=== PATIENT | female | born 1935 | race Caucasian/White ===

== ENCOUNTER 2022-08-21 22:12 | Inpatient (IN) | payer MEDICARE, MEDICAID, SELFPAY ==
[2022-08-21 22:12] VITALS: BP 207/134; PULSE 106; RESP 18; TEMP 36.8; O2SAT 98; BMI 33.5
--- NOTE | 2022-08-21 22:12 | CT_ITS ---
PROCEDURE INFORMATION: Exam: CT Lumbar Spine Without Contrast Exam date and time: 08/21/2022 11:37 PM Age: 87 years old Clinical indication: Low back pain; Additional info: Abd and back pain TECHNIQUE: Imaging protocol: Computed tomography of the lumbar spine without contrast. Radiation optimization: All CT scans at this facility use at least one of these dose optimization techniques: automated exposure control; mA and/or kV adjustment per patient size (includes targeted exams where dose is matched to clinical indication); or iterative reconstruction. REPORTING DATA: Count of CT and Cardiac NM exams in prior 12 months: This patient has received 0 known CTs and 0 known cardiac nuclear medicine studies in the 12 months prior to the current study. COMPARISON: [facility] CT abdomen pelvis wo con 05/20/2018 6:40 AM FINDINGS: Bones/joints: Osteopenia. Visualized vertebral body heights are preserved. Soft tissues: Please refer to separate CT abdomen pelvis report for additional findings. IMPRESSION: 1. Visualized vertebral body heights are preserved. If symptoms persist consider further evaluation with MR if no contraindications. 2. Please refer to separate CT abdomen pelvis report for additional findings.
--- NOTE | 2022-08-21 22:12 | CT_ITS ---
PROCEDURE INFORMATION: Exam: CT Abdomen And Pelvis With Contrast Exam date and time: 08/21/2022 11:40 PM Age: 87 years old Clinical indication: Abdominal pain; Additional info: Abd TECHNIQUE: Imaging protocol: Computed tomography of the abdomen and pelvis with contrast. Radiation optimization: All CT scans at this facility use at least one of these dose optimization techniques: automated exposure control; mA and/or kV adjustment per patient size (includes targeted exams where dose is matched to clinical indication); or iterative reconstruction. Contrast material: ISOVUE; Contrast volume: 75 ml; Contrast route: IV; REPORTING DATA: Count of CT and Cardiac NM exams in prior 12 months: This patient has received 0 known CTs and 0 known cardiac nuclear medicine studies in the 12 months prior to the current study. COMPARISON: [facility] CT abdomen pelvis wo con 05/20/2018 6:40 AM FINDINGS: Lungs: Consolidative opacity in the right lower lobe suspicious for pneumonia. Pleural spaces: Incompletely visualize relatively small right pneumothorax. Diaphragm: Elevation the right hemidiaphragm. Liver: No suspicious mass. Gallbladder and bile ducts: Mild intrahepatic biliary duct prominence. Pancreas: 2.2 cm low-attenuation lesion in the distal pancreas, indeterminate. Spleen: Unremarkable. Adrenal glands: Bilateral adrenal thickening. Kidneys and ureters: Bilateral extrarenal pelvis. Several renal cysts and too small to characterize renal hypodensities. Stomach and bowel: Large amount of stool in the colon. The rectum is markedly distended with stool. Rectal thickening with perirectal inflammatory changes. Findings suspicious for stercoral colitis. Appendix: No evidence of appendicitis. Intraperitoneal space: No free air. No ascites. Postsurgical changes in the upper abdomen. Vasculature: Extensive atherosclerotic calcifications in the aorta and its branches. 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 Lymph nodes: No enlarged lymph nodes. Urinary bladder: Unremarkable as visualized. Reproductive: The uterus is not seen. Bones/joints: Osteopenia. Soft tissues: No suspicious mass. Other findings: Limitation due to motion artifact. IMPRESSION: 1. Incompletely visualize relatively small right pneumothorax. 2. The rectum is markedly distended with stool. Rectal thickening with perirectal inflammatory changes. Findings suspicious for stercoral colitis. 3. Consolidative opacity in the right lower lobe suspicious for pneumonia. Recommend imaging follow-up until complete resolution. 4. 2.2 cm low-attenuation lesion in the distal pancreas, indeterminate. Correlate with MRI if no contraindications. COMMENTS: Consistent with the [employer]'s Incidental Findings Committee white paper (J Am Lucas Radiol 2018): Any incidental renal lesion less than 1 cm or classified as too small to characterize, or any incidental cystic renal lesion characterized as simple-appearing, is likely benign. No follow-up imaging is recommended for these lesions per consensus recommendations based on imaging criteria.
[2022-08-21 22:20] VITALS: BP 203/106; PULSE 102; O2SAT 94
[2022-08-21 22:28] VITALS: BP 189/96; PULSE 99; O2SAT 93
[2022-08-21 22:30] VITALS: BP 191/91; PULSE 95; O2SAT 94
[2022-08-21 23:00] VITALS: BP 180/100; PULSE 114; O2SAT 95
[2022-08-21 23:15] LABS: Basophils % 0.1 % (0.1-2.0); Eosinophils # 0.1 K/mm3 (0.0-0.4); Eosinophils % 0.6 % (0.1-12.0); Hematocrit 40.2 % (37.0-47.0); Lymphocytes # 1.2 K/mm3 (0.7-4.5); Lymphocytes % 7.3 % (10-50); Mean Corpuscular HGB Conc 32.5 g/dL (31.8-35.4); Mean Corpuscular Hemoglobin 29.3 pg (27.0-31.2); Mean Corpuscular Volume 90.2 fl (81-99); Mean Platelet Volume 7.5 fl (7.4-10.4); Monocytes % 6.1 % (1.7-9.3); Neutrophils # 13.6 K/mm3 (1.8-7.8); Neutrophils % 85.9 % (37.0-80.0); Platelet Count 458 K/mm3 (142-424); Red Blood Count 4.46 M/mm3 (4.20-5.40); Red Cell Distribution Width 15.8 % (11.5-17.5); White Blood Count 15.8 K/mm3 (4.8-10.8)
[2022-08-21 23:20] LABS: Chloride 89 mmol/L (98-107); Potassium 4.2 mmoL/L (3.5-5.1); Sodium 129 mmol/L (136-145)
[2022-08-21 23:22] LABS: Blood Urea Nitrogen 16 mg/dl (7-17); Creatinine Clearance Estimated 60 mL/min (50-200); Estimated Glomerular Filt Rate 68 ml/min (>60); GFR (African American) 82 ML/MIN (>60)
[2022-08-21 23:23] LABS: Alanine Aminotransferase 15 U/L (12-78); Albumin Level 3.7 g/dl (3.5-5.0); Alkaline Phosphatase 106 U/L (38-126); Anion Gap 18.2 mEq/L (5-15); Aspartate Amino Transferase 27 U/L (14-36); Bilirubin,Total 0.7 mg/dl (0.2-1.3); Calcium 9.3 mg/dl (8.4-10.2); Carbon Dioxide 26 mmol/L (22.0-30.0); Globulin 3.8 g/dL (1.3-3.2); Glucose 145 mg/dl (74-100); Lipase 42 U/L (23-300); Total Protein,Serum 7.5 g/dl (6.3-8.2)
[2022-08-21 23:27] LABS: MANUAL DIFFERENTIAL MANUAL DIFFERENTIAL (MANUAL DIFF)
[2022-08-21 23:30] VITALS: BP 183/100; PULSE 112; O2SAT 95
[2022-08-22] VITALS (12 sets, daily range): BP systolic 110–214; BP diastolic 48–124; PULSE 68–100; RESP 18–20; TEMP 36.4–37.3; O2SAT 92–99; BMI 21.0
[2022-08-22 00:06] LABS: Lymphocytes % 12 % (10-50); Monocytes % 3 % (2-9); Neutrophils % 85 % (42-76); Platelet Estimate Slight Increase; RBC Morphology Normal; Total Cells Counted 100
--- NOTE | 2022-08-22 00:55 | XR_ITS ---
PROCEDURE INFORMATION: Exam: XR Chest Exam date and time: 08/22/2022 1:17 AM Age: 87 years old Clinical indication: Shortness of breath; Additional info: SOA TECHNIQUE: Imaging protocol: Radiologic exam of the chest. Views: 1 view. COMPARISON: CT ABDOMEN PELVIS W CON 08/21/2022 11:40 PM FINDINGS: Lungs: Right basilar opacity may represent pneumonia in appropriate clinical setting. Pleural spaces: Tiny known left pneumothorax. Heart/Mediastinum: Unremarkable cardiomediastinal silhouette. Several calcified intrathoracic lymph nodes. Diaphragm: Elevation the right hemidiaphragm. Bones/joints: No acute osseous findings. IMPRESSION: 1. Tiny known left pneumothorax. 2. Right basilar opacity may represent pneumonia in appropriate clinical setting. Recommend imaging follow-up until complete resolution.
[2022-08-22 01:11] LABS: Coronavirus 19, PCR Not Detected (NotDetected); Influenza A, PCR Not Detected (NotDetected); Influenza B, PCR Not Detected (NotDetected)
--- NOTE | 2022-08-22 01:43 | EXP.HP ---
History of Present Illness *Admission Date: 08/22/22 *Reason for visit:: Abdominal pain *History of present illness: Ms. Albarado is an 87 year old female, resident at a long term, who presented to the ER with lower abdominal pain and back pain. Work-up in the ER, CBC and chemistry panel were unremarkable, except for mild leukocytosis. CT abdomen and pelvis demonstrated severe constipation, rectal thickening with perirectal inflammatory changes, suspicious for stercoral colitis. Also documented incidental finding of RLL pneumonia and questionable left apical pneumothorax. Enema was ordered in the ER. Patient was also started on Vancomycin and Zosyn IV. Discussion with Dr. Ball, agree patient needs to be admitted for management of severe constipation. [facility] Disclaimer: The information contained in this section may have been updated after the patient was seen, as this information can be updated by other users. Medical History Allergic rhinitis Alzheimer disease Anxiety Arthralgia of bilateral temporomandibular joint Chronic pain COVID-19 Delusional disorder Dementia Edema GERD (gastroesophageal reflux disease) Hypertension Insomnia Major depressive disorder Malaise Opioid dependence Protein calorie malnutrition Rectal prolapse Urinary tract infection Surgical History No significant past surgical history Family History Other No significant family history Social History Smoking Status: Never smoker alcohol intake: never current occupational status: retired Travel in the last 8 weeks: None Review of Systems Review of Systems Review of systems:: pertinent systems reviewed and negative unless documented below *Gastrointestinal Gastrointestinal: Reports abdominal pain (lower abdominal pain. ) Comments: Per long term, patient had 3 diarrhea stools yesterday. *Genitourinary Genitourinary: Reports pelvic pain *Musculoskeletal Musculoskeletal: Reports back pain (low) *Neurologic Comments: Hx dementia Meds Home Medications and Allergies Home Medications Medication Instructions Recorded Confirmed Type furosemide 20 mg tablet 20 mg PO DAILY Fluid 08/22/22 08/22/22 History hydrocodone 5 mg-acetaminophen 325 1 tab PO QID Pain 08/22/22 08/22/22 History mg tablet ibuprofen 400 mg tablet (IBU) 400 mg PO Q6HP PRN 08/22/22 08/22/22 History PAIN/INFLAMMATION loratadine 10 mg tablet 10 mg PO DAILY Allergy symptoms 08/22/22 08/22/22 History mirtazapine 45 mg tablet 45 mg PO HS SLEEP/MOOD 08/22/22 08/22/22 History ondansetron HCl 4 mg tablet 4 mg PO Q6HP PRN NAUSEA/VOMITING 08/22/22 08/22/22 History quetiapine 100 mg tablet 100 mg PO TID MOOD 08/22/22 08/22/22 History sennosides 8.6 mg tablet (senna) 8.6 mg PO DAILY constipation 08/22/22 08/22/22 History New Prescriptions to Start Prescriptions: Allergies Allergy/AdvReac Type Severity Reaction Status Date / Time amoxicillin [From Augmentin] Allergy Verified 05/20/18 05:59 clavulanic acid Allergy Verified 05/20/18 05:59 [From Augmentin] Exam Data for Last 24 hours Vital signs and Labs for Last 24 Hours: Temp Pulse Resp BP Pulse Ox 98.2 F 95 H 20 214/124 H 93 L 08/21/22 22:12 08/22/22 01:00 08/22/22 00:02 08/22/22 01:00 08/22/22 01:00 Laboratory Results - last 24 hr 08/21/22 23:07: WBC 15.8 H, RBC 4.46, Hgb 13.0, Hct 40.2, MCV 90.2, MCH 29.3, MCHC 32.5, RDW 15.8, Plt Count 458 H, MPV 7.5, Neut % (Auto) 85.9 H, Lymph % (Auto) 7.3 L, [place] % (Auto) 6.1, Eos % (Auto) 0.6, Baso % (Auto) 0.1, Neut # (Auto) 13.6 H, Lymph # (Auto) 1.2, [place] # (Auto) 1.0, Eos # (Auto) 0.1, Baso # (Auto) 0.0, Total Counted 100, Neutrophils % (Manual) 85 H, Lymphocytes % (Manual) 12, Monocytes % (Manual) 3, Platelet Estimate
[2022-08-22 01:45] LABS: Lactic Acid 0.9 mmol/L (0.7-2.1)
--- NOTE | 2022-08-22 01:57 | HMH.EDGENADL ---
Discharge Plan Disposition Patient Disposition: Admitted As Inpatient Clinical Impressions Clinical Impression: Stercoral colitis, Pneumonia involving right lung Discharge ED Provider: Mao Ball Adult HPI General Chief complaint: PAIN Stated complaint: back pain Time Seen by Provider: 08/21/22 22:12 Mode of Arrival: EMS Source of Information: EMS Limitations: No Limitations Description of Symptoms (Recalled from ER Triage Doc. by RN): EMS states that pt has lower back pain that radiates down into her left leg. History of Present Illness HPI narrative: 76-year-old lady with a past medical history of anemia, renal insufficiency, urinary tract infection who presents to the emergency department with a chief complaint of lower abdominal and back pain. Patient unable to give further history than this due to baseline dementia. care home states she had 3 diarrhea bowel movements today. Related Data Previous Rx's Medication Instructions Recorded hydrocortisone 2.5 % topical cream 30 gm TP TID ##1 05/20/18 with perineal applicator levofloxacin 500 mg tablet 500 mg PO DAILY #7 tabs 05/20/18 Allergies Allergy/AdvReac Type Severity Reaction Status Date / Time amoxicillin [From Augmentin] Allergy Verified 05/20/18 05:59 clavulanic acid Allergy Verified 05/20/18 05:59 [From Augmentin] [facility] Disclaimer: The information contained in this section may have been updated after the patient was seen, as this information can be updated by other users. Social History Smoking Status: Never smoker alcohol intake: never current occupational status: retired Travel in the last 8 weeks: None ROS Obtained: Yes unobtainable due to mental condition Physical Exam General General appearance: alert Head Head exam: atraumatic ENT ENT exam: Present normal exam Neck Neck exam: Present normal inspection Chest Chest inspection: Present normal inspection Respiratory Respiratory exam: Present normal lung sounds bilaterally Cardiovascular Cardiovascular exam: Present regular rate Abdominal Exam Abdominal exam: Present distention and other (Abdomen is distended but no notable tenderness.) Extremities Exam Extremities exam: Present normal inspection Back Exam Back exam: Present normal inspection Neurological Exam Neurological exam: Present alert Medical Decision Making Eric Inquiry Pt receiving controlled substance: No Vital Signs: 08/21/22 22:12 08/21/22 22:20 08/21/22 22:28 Temperature 98.2 F Temperature Source Oral Pulse Rate 102 H 99 H Pulse Rate [Apical] 106 H Respiratory Rate 18 Blood Pressure 203/106 H 189/96 H Blood Pressure [Right Arm] 207/134 H Blood Pressure Mean Blood Pressure Mean [Right Arm] 158 Blood Pressure Source [Right Arm] Automatic Cuff Blood Pressure Position [Right Arm] Sitting 02 Sat by Pulse Oximetry 98 94 L 93 L Oxygen Delivery Method Room Air Room Air Room Air 08/21/22 22:30 08/21/22 23:00 08/21/22 23:30 Temperature Temperature Source Pulse Rate 95 H 114 H 112 H Pulse Rate [Apical] Respiratory Rate Blood Pressure 191/91 H 180/100 H 183/100 H Blood Pressure [Right Arm] Blood Pressure Mean Blood Pressure Mean [Right Arm] Blood Pressure Source [Right Arm] Blood Pressure Position [Right Arm] 02 Sat by Pulse Oximetry 94 L 95 95 Oxygen Delivery Method Room Air Room Air Room Air 08/22/22 00:02 08/22/22 00:31 08/22/22 01:00 Temperature Temperature Source Pulse Rate 94 H 100 H 95 H Pulse Rate [Apical] Respiratory Rate 20 Blood Pressure 145/123 H 176/105 H 214/124 H Blood Pressure [Right Arm] Blood Pressure Mean 129 Blood Pressure Mean [Right Arm] Blood Pressure Source [Right Arm] Blood Pressure Position [Right Arm] 02 Sat by Pulse Oximetry 94 L 92 L 93 L Oxygen Delivery Method Room Air Room Air Lab Data Lab Results 08/21/22 23:07: WBC 15.8 H, RBC 4.46, Hgb
--- NOTE | 2022-08-22 02:27 | PC.NURSE ---
Patient given a soap suds enema. Stool ball was at the base of the rectum and thus the enema did not infuse into the patients bowels. MD notified.
--- NOTE | 2022-08-22 02:35 | PC.NURSE ---
Pt. arrived to floor at this time.
--- NOTE | 2022-08-22 03:06 | PC.NURSE ---
rECEIVED PHONE REPORT FROM ANANT LEONARD RN/ED NURSE AT 0200. 87 YO FEMALE FROM [facility] HOME BEING ADMITTED FOR COLITIS/CONSTIPATION/ PNEUMONIA. PATIENT ARRIVED TO THE MED SURG FLOOR AT 0230 VIA STRETCHER AND ADMITTED TO ROOM 200. ORIENTED TO ROOM AND CALL WARD. PATIENT VERBALIZES UNSERSTANDING.
--- NOTE | 2022-08-22 03:20 | PC.NURSE ---
[facility] Attempted to call [facility] to get telephone consent for DNR in hospital, but no answer during call. Voicemail was left for son to call 2nd floor back.
--- NOTE | 2022-08-22 06:01 | PC.NURSE ---
PATIENT'S BP HAS BEEN ELEVATED IN THE ED AND ON MED SURG. RECEIVED ZOFRAN 4 MG IV FOR NAUSEA AND DRY HEAVES. RECEIVED METOPROLOL 5 MG IVP FOR BP 189/102. AT 0400 BP DOWN TO 148/80. RECEIVED ENEMA IN THE ED. STILL NO RESULTS FROM THE ENEMA.
[2022-08-22 07:59] LABS: Basophils % 0.1 % (0.1-2.0); Eosinophils # 0.1 K/mm3 (0.0-0.4); Eosinophils % 0.6 % (0.1-12.0); Hematocrit 37.4 % (37.0-47.0); Lymphocytes # 1.3 K/mm3 (0.7-4.5); Lymphocytes % 7.5 % (10-50); Mean Corpuscular Hemoglobin 29.5 pg (27.0-31.2); Mean Platelet Volume 7.9 fl (7.4-10.4); Monocytes # 1.6 K/mm3 (0.1-1.0); Monocytes % 8.8 % (1.7-9.3); Neutrophils # 14.8 K/mm3 (1.8-7.8); Neutrophils % 82.9 % (37.0-80.0); Platelet Count 429 K/mm3 (142-424); Red Blood Count 4.07 M/mm3 (4.20-5.40); Red Cell Distribution Width 15.7 % (11.5-17.5); White Blood Count 17.9 K/mm3 (4.8-10.8)
[2022-08-22 08:10] LABS: Alanine Aminotransferase 15 U/L (12-78); Albumin Level 3.2 g/dl (3.5-5.0); Albumin/Globulin Ratio 0.9 (1.1-1.8); Alkaline Phosphatase 92 U/L (38-126); Aspartate Amino Transferase 26 U/L (14-36); Bilirubin,Total 0.8 mg/dl (0.2-1.3); Blood Urea Nitrogen 14 mg/dl (7-17); Calcium 8.9 mg/dl (8.4-10.2); Carbon Dioxide 25 mmol/L (22.0-30.0); Chloride 96 mmol/L (98-107); Creatinine Clearance Estimated 38 mL/min (50-200); Estimated Glomerular Filt Rate 68 ml/min (>60); GFR (African American) 82 ML/MIN (>60); Globulin 3.5 g/dL (1.3-3.2); Glucose 103 mg/dl (74-100); Magnesium 1.8 mg/dl (1.6-2.3); Phosphorous 3.6 mg/dl (2.5-4.5); Sodium 132 mmol/L (136-145); Total Protein,Serum 6.7 g/dl (6.3-8.2)
--- NOTE | 2022-08-22 08:31 | EXP.PHA.CONS ---
Pharmacy Consult Date: 08/22/22 Time: 08:31 Referring provider: DR. JESSICA Reason for Consult:: VANCOMYCIN DOSING Allergies Allergy/AdvReac Type Severity Reaction Status Date / Time amoxicillin [From Augmentin] Allergy Verified 05/20/18 05:59 clavulanic acid Allergy Verified 05/20/18 05:59 [From Augmentin] Home Medications Medication Instructions Recorded Confirmed Type furosemide 20 mg tablet 20 mg PO DAILY Fluid 08/22/22 08/22/22 History hydrocodone 5 mg-acetaminophen 325 1 tab PO QID Pain 08/22/22 08/22/22 History mg tablet ibuprofen 400 mg tablet (IBU) 400 mg PO Q6H Fever 08/22/22 08/22/22 History loratadine 10 mg tablet 10 mg PO DAILY Allergy symptoms 08/22/22 08/22/22 History mirtazapine 45 mg tablet 45 mg PO HS mood 08/22/22 08/22/22 History ondansetron HCl 4 mg tablet 4 mg PO Q6H Nausea & vomiting 08/22/22 08/22/22 History quetiapine 100 mg tablet 100 mg PO TID mood 08/22/22 08/22/22 History sennosides 8.6 mg tablet (senna) 8.6 mg PO DAILY constipation 08/22/22 08/22/22 History New Prescriptions to Start Prescriptions: Height: 1.68 m Weight: 59.421 kg Laboratory Results:: Laboratory Results - last 24 hr 08/21/22 23:07: WBC 15.8 H, RBC 4.46, Hgb 13.0, Hct 40.2, MCV 90.2, MCH 29.3, MCHC 32.5, RDW 15.8, Plt Count 458 H, MPV 7.5, Neut % (Auto) 85.9 H, Lymph % (Auto) 7.3 L, [place] % (Auto) 6.1, Eos % (Auto) 0.6, Baso % (Auto) 0.1, Neut # (Auto) 13.6 H, Lymph # (Auto) 1.2, [place] # (Auto) 1.0, Eos # (Auto) 0.1, Baso # (Auto) 0.0, Total Counted 100, Neutrophils % (Manual) 85 H, Lymphocytes % (Manual) 12, Monocytes % (Manual) 3, Platelet Estimate Slight increase, RBC Morphology Normal 08/21/22 23:07: Sodium 129 L, Potassium 4.2, Chloride 89 L, Carbon Dioxide 26, Anion Gap 18.2 H, BUN 16, Creatinine 0.80, Estimated Creat Clear 60, Estimated GFR 68, Est GFR ( Amer) 82, Glucose 145 H, Calcium 9.3, Total Bilirubin 0.7, AST 27, ALT 15, Alkaline Phosphatase 106, Total Protein 7.5, Albumin 3.7, Globulin 3.8 H, Albumin/Globulin Ratio 1.0 L, Lipase 42 08/22/22 01:06: SARS-CoV-2 (PCR) Not detected, Influenza A Untype (PCR) Not detected, Influenza Type B (PCR) Not detected 08/22/22 01:31: Lactate 0.9 08/22/22 06:23: WBC 17.9 H, RBC 4.07 L, Hgb 12.0 L, Hct 37.4, MCV 92.0, MCH 29.5, MCHC 32.0, RDW 15.7, Plt Count 429 H, MPV 7.9, Neut % (Auto) 82.9 H, Lymph % (Auto) 7.5 L, [place] % (Auto) 8.8, Eos % (Auto) 0.6, Baso % (Auto) 0.1, Neut # (Auto) 14.8 H, Lymph # (Auto) 1.3, [place] # (Auto) 1.6 H, Eos # (Auto) 0.1, Baso # (Auto) 0.0 08/22/22 06:23: Sodium 132 L, Potassium 4.0, Chloride 96 L, Carbon Dioxide 25, Anion Gap 15.0, BUN 14, Creatinine 0.80, Estimated Creat Clear 38, Estimated GFR 68, Est GFR ( Amer) 82, Glucose 103 H D, Calcium 8.9, Phosphorus 3.6, Magnesium 1.8, Total Bilirubin 0.8, AST 26, ALT 15, Alkaline Phosphatase 92, Total Protein 6.7, Albumin 3.2 L D, Globulin 3.5 H, Albumin/Globulin Ratio 0.9 L Medical History: Medical History (Updated 08/22/22 @ 03:42 by Lauren Nichols APRN) Allergic rhinitis Alzheimer disease Anxiety Arthralgia of bilateral temporomandibular joint Chronic pain COVID-19 Delusional disorder Dementia Edema GERD (gastroesophageal reflux disease) Hypertension Insomnia Major depressive disorder Malaise Opioid dependence Protein calorie malnutrition Rectal prolapse Urinary tract infection Assessment and Plan Assessment and plan all Dx Assessment and Plan for all problems:: Pharmacokinetic dosing service Objective: Patient: Floor: Age: 87 yo Serum creatinine: 1 mg/dL Height: 66.1 Inches Weight (kg): 59.4 Assessment: IBW (kg): 59.53 Dosing wt(kg): 59.4 Estimated Creatinine clearance (ml/min): 37.9 CRCL method: Cockcroft and Gault using ibw(default). Drug selected: Vancomycin Loading dose (mg): 0 Vd (liters): 47.5 (factor used: 0.8 L/kg) Colin (hr-1): 0.036 Half life (hrs): 19.25 R
[2022-08-22 09:26] LABS: Microscopic, Urine URINE MICROSCOPIC (MICROSCOPIC)
[2022-08-22 09:35] LABS: Appearance,Urine SL CLOUDY (Clear); Bilirubin,Urine Negative (Negative); Blood, Urine 3+ (Negative); Color,Urine YELLOW (Yellow); Glucose,Urine (UA) Negative (Negative); Ketones,Urine Negative (Negative); Leukocyte Esterase,Urine 1+ (Negative); Nitrate,Urine POSITIVE (Negative); Protein,Urine Negative (Negative); Urobilinogen,Urine 0.2 EU/dl (0.2)
[2022-08-22 09:46] LABS: Bacteria,Urine 3+ /lpf; RBC,Urine 20-50 #/hpf (0-3); Squamous Epithelial Cell,Urine Occasional #/hpf (0-5)
--- NOTE | 2022-08-22 18:14 | PC.NURSE ---
PT HAS SLEPT FOR MOST OF SHIFT. SHE IS ABLE TO MAKE NEEDS KNOWN TO STAFF AND APPROPRIATELY ANSWERS QUESTIONS AND FOLLOW COMMANDS. SHE DID GET UP TO BEDSIDE COMMODE FOLLOWING WITH ASSISTANCE X2 AND WAS COMPLETELY DEPENDENT WITH AMBULATION. SHE HAS NOT HAD A BM THIS SHIFT ASIDE FROM MANUAL REMOVAL OF IMPACTED FECES THIS MORNING BY MD AT THE BEDSIDE. SHE DID RECEIVE ONE MINERAL OIL ENEMA BUT NO BM THUS FAR.
[2022-08-23] VITALS: BP 124/54; PULSE 79; RESP 18; TEMP 36.7; O2SAT 92
--- NOTE | 2022-08-23 03:06 | PC.NURSE ---
Pt. is aox 3, 20g R ac with LR @ 50 ml/hr, turn q 2 hour, scuds on, bed alarm on, no changes over night.
[2022-08-23 04:00] VITALS: BP 133/61; PULSE 76; RESP 18; TEMP 36.8; O2SAT 94; BMI 21.2
--- NOTE | 2022-08-23 06:16 | PC.NURSE ---
pt. 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
--- NOTE | 2022-08-23 07:38 | SW/DCPLANNER ---
This patient currently resides at [facility] level of care. Updated patient information has been faxed to Rayne thornton/ [facility]. I will continue to update until patient is medically stable for discharge. Discharge date is unknown at this time.
--- NOTE | 2022-08-23 07:43 | EXP.ACUTE.PN ---
Subjective *Date: 08/23/22 *Time: 12:53 Interval history: Pleasant. Oriented to self. States she hurts but cannot focalize it. Vitals normal. No fever. No significant bowel movement overnight. Tolerating p.o. intake. Stable on room air. Afebrile. Medical Exam Vital signs and Labs for Last 24 Hours: Vital Signs Temp Pulse Resp BP Pulse Ox 08/23/22 04:00 98.2 F 76 18 133/61 94 L 08/23/22 00:00 98.0 F 79 18 124/54 L 92 L 08/22/22 20:00 97 08/22/22 19:55 98.2 F 84 18 165/107 H 92 L 08/22/22 15:04 98.7 F 68 18 110/58 L 95 08/22/22 11:52 98.7 F 75 18 116/48 L 92 L Intake and Output 08/22/22 08/22/22 08/23/22 15:59 23:59 07:59 Intake Total 330 / 686 450 / 450 Output Total 1000 / 1800 800 / 1800 Balance -670 / -1114 -800 / -1114 450 / 450 Intake: Intake, Oral Amount 330 / 330 Intake, Total IV Amount 450 / 450 Lactated Ringers 1000ML 1,000 450 / 450 ml @ 50 mls/hr IV .Q20H [facility] Rx# :[id number] Output: Output, Urine Amount 1000 / 1800 800 / 1800 Other: Number of Unmeasured Voids 1 1 Number of Bowel Movements 1 Weight 59.421 kg 59.874 kg Patient Weight 08/23/22 23:59 Weight 59.874 kg Laboratory Results - last 24 hr 08/22/22 06:23: WBC 17.9 H, RBC 4.07 L, Hgb 12.0 L, Hct 37.4, MCV 92.0, MCH 29.5, MCHC 32.0, RDW 15.7, Plt Count 429 H, MPV 7.9, Neut % (Auto) 82.9 H, Lymph % (Auto) 7.5 L, [place] % (Auto) 8.8, Eos % (Auto) 0.6, Baso % (Auto) 0.1, Neut # (Auto) 14.8 H, Lymph # (Auto) 1.3, [place] # (Auto) 1.6 H, Eos # (Auto) 0.1, Baso # (Auto) 0.0 08/22/22 06:23: Sodium 132 L, Potassium 4.0, Chloride 96 L, Carbon Dioxide 25, Anion Gap 15.0, BUN 14, Creatinine 0.80, Estimated Creat Clear 38, Estimated GFR 68, Est GFR ( Amer) 82, Glucose 103 H D, Calcium 8.9, Phosphorus 3.6, Magnesium 1.8, Total Bilirubin 0.8, AST 26, ALT 15, Alkaline Phosphatase 92, Total Protein 6.7, Albumin 3.2 L D, Globulin 3.5 H, Albumin/Globulin Ratio 0.9 L 08/22/22 09:15: Urine Color Yellow, Urine Appearance Sl cloudy, Urine pH 6.0, Ur Specific [place] 1.010, Urine Protein Negative, Urine Glucose (UA) Negative, Urine Ketones Negative, Urine Blood 3+, Urine Nitrate Positive, Urine Bilirubin Negative, Urine Urobilinogen 0.2, Ur Leukocyte Esterase 1+ A, Urine RBC 20-50, Urine WBC 5-10, Ur Squamous Epith Cells Occasional, Urine Bacteria 3+ I & O for Labs for Last 24 Hours: Intake & Output 08/20/22 08/21/22 08/22/22 08/23/22 23:59 23:59 23:59 23:59 Intake Total 686 / 686 450 / 450 Output Total 1800 / 1800 Balance -1114 / -1114 450 / 450 Weight 94.347 kg 59.421 kg 59.874 kg Microbiology Reports for the Last 24 Hours: Microbiology 08/22/22 01:06 Blood Blood Culture - Preliminary Gram Negative Rods 08/22/22 09:15 Urine,Clean Catch Urine Culture - Preliminary Gram Negative Rods Constitutional: Present no acute distress, thin, chronically ill appearing and cooperative Comment:: Frail Head: Present atraumatic and normocephalic ENT: Present normal exam Neck: Present normal inspection Respiratory: Present normal respiratory effort; Absent rhonchi, wheezes or crackles Cardiac: Present Reg Rate and Rhythm GI: Present soft, tenderness (Diffuse, worse in left lower abdomen) and normal bowel sounds; Absent distention Rectal (female): Present fecal impaction Extremities: Present normal inspection and full ROM Skin: Present intact; Absent erythema Neuro: Present Grossly Intact, alert, awake and moves all extremities Assessment and Plan *Assessment and plan (1) Bacteremia: Status: Acute Category: Medical Code(s): R78.81 - Bacteremia (2) UTI (urinary tract infection): Status: Acute Qualifiers: Hematuria presence: without hematuria Urinary tract infection type: site unspecified Qualified Code(s): N39.0 - Urinary tract infection, site not specified Categ
[2022-08-23 07:46] VITALS: BP 145/68; PULSE 74; RESP 18; TEMP 36.9; O2SAT 92
[2022-08-23 12:00] VITALS: BP 144/62; PULSE 87; RESP 18; TEMP 36.6; O2SAT 93
[2022-08-23 16:00] VITALS: BP 126/67; PULSE 76; RESP 18; TEMP 36.4; O2SAT 93
--- NOTE | 2022-08-23 18:17 | PC.NURSE ---
Addendum entered by Magda Alcocer RN 08/23/22 18:18: pt has cursed at staff, reassured pt of care given. pt tolerated regular diet. digital disimpaction by malina. Original Note: pt a&o to person and year unable to identify place. unable to obtain sputum. pt has c/o generalized pain, treated per mar
[2022-08-23 18:33] LABS: Chloride 95 mmol/L (98-107); Potassium 3.1 mmoL/L (3.5-5.1); Sodium 131 mmol/L (136-145)
[2022-08-23 18:34] LABS: Basophils % 0.4 % (0.1-2.0); Eosinophils # 0.3 K/mm3 (0.0-0.4); Eosinophils % 3.6 % (0.1-12.0); Hematocrit 30.3 % (37.0-47.0); Hemoglobin 9.8 g/dL (12.2-16.2); Lymphocytes % 23.1 % (10-50); Mean Corpuscular HGB Conc 32.4 g/dL (31.8-35.4); Mean Corpuscular Hemoglobin 30.6 pg (27.0-31.2); Mean Corpuscular Volume 94.4 fl (81-99); Mean Platelet Volume 7.7 fl (7.4-10.4); Monocytes # 0.8 K/mm3 (0.1-1.0); Monocytes % 9.2 % (1.7-9.3); Neutrophils # 5.6 K/mm3 (1.8-7.8); Neutrophils % 63.7 % (37.0-80.0); Platelet Count 373 K/mm3 (142-424); Red Cell Distribution Width 15.5 % (11.5-17.5); White Blood Count 8.8 K/mm3 (4.8-10.8)
[2022-08-23 18:35] LABS: Alanine Aminotransferase 20 U/L (12-78); Aspartate Amino Transferase 26 U/L (14-36); Blood Urea Nitrogen 14 mg/dl (7-17); Creatinine Clearance Estimated 38 mL/min (50-200); Estimated Glomerular Filt Rate 68 ml/min (>60); GFR (African American) 82 ML/MIN (>60)
[2022-08-23 18:36] LABS: Albumin Level 2.7 g/dl (3.5-5.0); Albumin/Globulin Ratio 0.9 (1.1-1.8); Alkaline Phosphatase 68 U/L (38-126); Anion Gap 14.1 mEq/L (5-15); Bilirubin,Total 0.2 mg/dl (0.2-1.3); Calcium 8.6 mg/dl (8.4-10.2); Carbon Dioxide 25 mmol/L (22.0-30.0); Glucose 142 mg/dl (74-100); Magnesium 1.9 mg/dl (1.6-2.3); Total Protein,Serum 5.7 g/dl (6.3-8.2)
[2022-08-23 20:00] VITALS: BP 148/64; PULSE 76; RESP 20; TEMP 35.8; O2SAT 95; O2SAT 97
[2022-08-23 20:47] LABS: Vancomycin,Trough 15.1 ug/mL (5.0-10.0)
--- NOTE | 2022-08-23 20:59 | PC.NURSE ---
pharmacy called about trough of 15.1, okay to give dose.
[2022-08-24] VITALS: BP 170/81; PULSE 79; RESP 20; TEMP 36.1; O2SAT 93
[2022-08-24 01:36] LABS: Vancomycin,Peak 18.6 ug/ml (11-39)
--- NOTE | 2022-08-24 03:24 | PC.NURSE ---
Pt. confused and awake a good part of the night. She pulled out an iv and a new 22g was placed in the left hand.
[2022-08-24 04:00] VITALS: BP 172/79; PULSE 75; RESP 20; TEMP 36.9; O2SAT 93; BMI 22.1
[2022-08-24 06:19] LABS: Alanine Aminotransferase 9 U/L (12-78); Albumin Level 2.6 g/dl (3.5-5.0); Albumin/Globulin Ratio 0.9 (1.1-1.8); Alkaline Phosphatase 70 U/L (38-126); Anion Gap 10.5 mEq/L (5-15); Aspartate Amino Transferase 19 U/L (14-36); Bilirubin,Total 0.3 mg/dl (0.2-1.3); Blood Urea Nitrogen 13 mg/dl (7-17); Calcium 8.1 mg/dl (8.4-10.2); Carbon Dioxide 26 mmol/L (22.0-30.0); Chloride 98 mmol/L (98-107); Creatinine Clearance Estimated 40 mL/min (50-200); Estimated Glomerular Filt Rate 79 ml/min (>60); GFR (African American) 96 ML/MIN (>60); Globulin 2.9 g/dL (1.3-3.2); Glucose 97 mg/dl (74-100); Potassium 3.5 mmoL/L (3.5-5.1); Sodium 131 mmol/L (136-145); Total Protein,Serum 5.5 g/dl (6.3-8.2)
--- NOTE | 2022-08-24 07:27 | EXP.PN ---
Subjective *Date: 08/24/22 *Time: 07:27 Interval history: Date of service August 24, 2022 Nursing staff report no acute events overnight. She remains afebrile with improved heart rates and blood pressures. She is saturating appropriately on room air. Her urine and blood culture identified E. coli sensitive to Rocephin and her antibiotic regimen is being adjusted. Case management has been consulted for transition of care back to detention facility over the next day or 2. Exam Data for Last 24 hours Vital signs and Labs for Last 24 Hours: Temp Pulse Resp BP Pulse Ox 98.4 F 75 20 172/79 H 93 L 08/24/22 04:00 08/24/22 04:00 08/24/22 04:00 08/24/22 04:00 08/24/22 04:00 Laboratory Results - last 24 hr 08/23/22 17:50: WBC 8.8 D, RBC 3.20 L, Hgb 9.8 L, Hct 30.3 L, MCV 94.4, MCH 30.6, MCHC 32.4, RDW 15.5, Plt Count 373, MPV 7.7, Neut % (Auto) 63.7, Lymph % (Auto) 23.1, [place]atte % (Auto) 9.2, Eos % (Auto) 3.6, Baso % (Auto) 0.4, Neut # (Auto) 5.6, Lymph # (Auto) 2.0, [place] # (Auto) 0.8, Eos # (Auto) 0.3, Baso # (Auto) 0.0 08/23/22 17:50: Sodium 131 L, Potassium 3.1 L D, Chloride 95 L, Carbon Dioxide 25, Anion Gap 14.1, BUN 14, Creatinine 0.80, Estimated Creat Clear 38, Estimated GFR 68, Est GFR ( Amer) 82, Glucose 142 H, Calcium 8.6, Magnesium 1.9, Total Bilirubin 0.2, AST 26, ALT 20 D, Alkaline Phosphatase 68, Total Protein 5.7 L, Albumin 2.7 L D, Globulin 3.0, Albumin/Globulin Ratio 0.9 L 08/23/22 20:00: Vancomycin Trough 15.1 H 08/24/22 01:00: Vancomycin Peak 18.6 08/24/22 05:51: Sodium 131 L, Potassium 3.5, Chloride 98, Carbon Dioxide 26, Anion Gap 10.5, BUN 13, Creatinine 0.70, Estimated Creat Clear 40, Estimated GFR 79, Est GFR ( Amer) 96, Glucose 97 D, Calcium 8.1 L, Total Bilirubin 0.3, AST 19 D, ALT 9 L D, Alkaline Phosphatase 70, Total Protein 5.5 L, Albumin 2.6 L, Globulin 2.9, Albumin/Globulin Ratio 0.9 L I & O for Last 24 hours: Intake & Output 08/21/22 08/22/22 08/23/22 08/24/22 23:59 23:59 23:59 23:59 Intake Total 686 / 686 2193 / 2193 550 / 550 Output Total 1800 / 1800 0 / 0 0 / 0 Balance -1114 / -1114 2193 / 2193 550 / 550 Weight 94.347 kg 59.421 kg 59.874 kg 62.397 kg Microbiology Reports for the Last 24 Hours: Microbiology 08/22/22 01:06 Blood Blood Culture - Preliminary Escherichia coli 08/22/22 09:15 Urine,Clean Catch Urine Culture - Final Escherichia coli 08/22/22 01:06 Blood Blood Culture - Preliminary NO GROWTH AFTER 48 HOURS Constitutional Constitutional: no acute distress, chronically ill appearing and cooperative *Routine HEENT Exam Head: Present normocephalic Eye: Present EOMI and PERRL ENT: Present mucous membranes moist *Routine Neck Exam Neck: Present supple; Absent lymphadenopathy *Routine Respiratory Exam Respiratory: Present rhonchi, diminished air movement and normal respiratory effort *Routine Cardiovascular Exam Cardiovascular: Present RRR *Routine Abdominal Exam Abdominal: Present soft and normoactive bowel sounds; Absent tenderness *Routine Extremities Exam Extremities: Absent cyanosis, clubbing or edema *Routine Skin Exam Skin: Present warm; Absent rash *Routine Neurological Exam Neurological: Present alert, moving all extremities and normal speech Routine Psychiatric Exam Psychiatric: Present cooperative and agitated Assessment and Plan *Assessment and plan (1) Bacteremia: Status: Acute Category: Medical Code(s): R78.81 - Bacteremia (2) UTI (urinary tract infection): Status: Acute Qualifiers: Hematuria presence: without hematuria Urinary tract infection type: site unspecified Qualified Code(s): N39.0 - Urinary tract infection, site not specified Category: Medical Code(s): N39.0 - Urinary tract infection, site not specified (3) Fecal impaction: Status: Acute Category: Medical Co
[2022-08-24 08:00] VITALS: BP 180/78; PULSE 95; RESP 24; TEMP 36.6; O2SAT 91
--- NOTE | 2022-08-24 10:24 | EXP.DC.SUM ---
General Admission date:: 08/22/22 Discharge date: 08/24/22 HPI HPI HPI: Ms. Albarado is an 87 year old female, resident at a [facility], who presented to the ER with lower abdominal pain and back pain. Work-up in the ER, CBC and chemistry panel were unremarkable, except for mild leukocytosis. CT abdomen and pelvis demonstrated severe constipation, rectal thickening with perirectal inflammatory changes, suspicious for stercoral colitis. Also documented incidental finding of RLL pneumonia and questionable left apical pneumothorax. Enema was ordered in the ER. Patient was also started on Vancomycin and Zosyn IV. Discussion with Dr. Ball, agree patient needs to be admitted for management of severe constipation. Hospital Course Hospital Course Hospital Course: The patient was admitted to the medical unit with blood and urine cultures acquired. She was started on broad-spectrum IV antibiotic therapy with routine labs and inflammatory evaluation. CT scan of the abdomen and pelvis was reviewed. She was provided therapy for her constipation with effective bowel elimination. Speech therapy evaluated the patient for concerns of aspiration. Her leukocytoses resolved and her renal function returned to normal. Her urine culture grew out E. coli as well as her blood culture. Her blood culture sensitivities were reviewed and the patient's IV antibiotic was transitioned to Rocephin for bacteremia therapy. A PICC line was requested for ongoing discharge IV antibiotics for E. coli bacteremia, UTI, right lower lobe pneumonia and colitis. The patient should see her PCP in 1 week. I spent 35 minutes in [id number] time with the patient, case management and nursing staff concerning the discharge process. We discussed the admitting diagnoses and hospital course. We discussed identified improvement and the patient/family desire to be discharged. We reviewed inpatient studies and imaging. The patient/family voiced understanding on the importance of follow-up with his primary care provider and specialist(s). The patient plans to be compliant with the medication regimen prescribed and follow-up appointments. She understands that she can return to the emergency department with any sudden changes or concerns. Exam Data for Last 24 hours Vital signs and Labs for Last 24 Hours: Temp Pulse Resp BP Pulse Ox 97.8 F 95 H 24 180/78 H 91 L 08/24/22 08:00 08/24/22 08:00 08/24/22 08:00 08/24/22 08:00 08/24/22 08:00 Laboratory Results - last 24 hr 08/23/22 17:50: WBC 8.8 D, RBC 3.20 L, Hgb 9.8 L, Hct 30.3 L, MCV 94.4, MCH 30.6, MCHC 32.4, RDW 15.5, Plt Count 373, MPV 7.7, Neut % (Auto) 63.7, Lymph % (Auto) 23.1, [place] % (Auto) 9.2, Eos % (Auto) 3.6, Baso % (Auto) 0.4, Neut # (Auto) 5.6, Lymph # (Auto) 2.0, [place] # (Auto) 0.8, Eos # (Auto) 0.3, Baso # (Auto) 0.0 08/23/22 17:50: Sodium 131 L, Potassium 3.1 L D, Chloride 95 L, Carbon Dioxide 25, Anion Gap 14.1, BUN 14, Creatinine 0.80, Estimated Creat Clear 38, Estimated GFR 68, Est GFR ( Amer) 82, Glucose 142 H, Calcium 8.6, Magnesium 1.9, Total Bilirubin 0.2, AST 26, ALT 20 D, Alkaline Phosphatase 68, Total Protein 5.7 L, Albumin 2.7 L D, Globulin 3.0, Albumin/Globulin Ratio 0.9 L 08/23/22 20:00: Vancomycin Trough 15.1 H 08/24/22 01:00: Vancomycin Peak 18.6 08/24/22 05:51: Sodium 131 L, Potassium 3.5, Chloride 98, Carbon Dioxide 26, Anion Gap 10.5, BUN 13, Creatinine 0.70, Estimated Creat Clear 40, Estimated GFR 79, Est GFR ( Amer) 96, Glucose 97 D, Calcium 8.1 L, Total Bilirubin 0.3, AST 19 D, ALT 9 L D, Alkaline Phosphatase 70, Total Protein 5.5 L, Albumin 2.6 L, Globulin 2.9, Albumin/Globulin Ratio 0.9 L I & O for Last 24 hours: Intake & Output 08/21/22 08/22/22 08/23/22 08/24/22 23:59 23:59 23:59 23:59 Intake Total 686 / 686 2193 / 2193 610 / 610 Output Total 1800 / 1800 0 / 0 0 / 0 Balance -1114 / -1114 2193 / 2193 610 / 610 Weight 94.347 kg 59.421 kg 59.874 kg 62.397 kg M
--- NOTE | 2022-08-24 10:54 | HMH.SLDYSPHA ---
Speech & Language Evaluation Speech/Language Dysphagia Evaluation Start: 08/24/22 09:41 Freq: ONCE Status: Active Protocol: Document 08/24/22 09:41 ATUL (Rec: 08/24/22 10:54 ATUL [id number]) Dysphagia Assess/Goals/Plan Assessment Date of Evaluation: 08/24/22 Evaluation Type Initial Certification Assessment/Problems Right lower lobe pneumonia per MD order. Does Patient Qualify for Service No Qualify/Failure Comment Given the results of the clinical swallow evaluation, no further skilled ST services are indicated at this time. Recommendations PHYSICIAN CERTIFICATION: The specified therapy services are required, authorized, and reviewed every 30 days. Diet Recommendations Normal Liquid Type Recommendations Normal/Thin SL Swallow Guidelines Standard Aspiration Prec.,Eat at slow rate Dysphagia Swallow Precautions/Strategies Sitting Upright (90 deg),Small Bites and Sips,Alternate Liquids/Solids Plan Pt/Guardian verbally ack understanding Yes of dx/prognosis/goals Pt/Guardian verbally ack understanding Yes of/consent to tx prog G -code Required No Education Instructions provided CSE results and recommendations discussed with pt, care management, and nursing, all of whom expressed understanding. Pt/Caregiver able to recall information Able to recall/restate Reinforcement needed No Speech & Language HPI History Present Illness Description of Patient Problem Ms. Albarado is an 87 y.o. female presenting to [facility] via EMS from her nursing facility with complaints of lower abdominal pain and back pain. Pt had a CT, which revealed severe constipation. CXR revealed right lower lobe opacity and small left pneumothroax. She is currently on room air and a regular diet. Rehab Services Assessed Speech therapy Is this evaluation r/t stroke? No General Information General Current Food Consistancy Regular,Thin Liquids Oxygen Status Room Air Ability to Follow Directions Poor Communication Ability Moderate Impairment Dysphagia:Food Presentation Evaluation Food Type Pureed,Regular,Liquid Dysphagia Evaluation Summary
--- NOTE | 2022-08-25 10:37 | CARE MANAGER ---
[facility]ed [facility] related to hospital discharge. Patient is doing well. Denies questions. CARMEN Pagan
== END 2022-08-24 14:59 | DRG 391 ==
LOC: ER 08-22 01:25 → 2ND 08-22 06:31
PROVIDERS: Nurse Practitioner; Admitting Provider Internal Medicine Adolescent Medicine; Emergency Provider Emergency Medicine; PCP Internal Medicine Adolescent Medicine; Visit Provider Internal Medicine Adolescent Medicine
DX: K52.89 Other specified noninfective gastroenteritis and colitis (principal); J18.9 Pneumonia, unspecified organism; N39.0 Urinary tract infection, site not specified; R78.81 Bacteremia; K56.41 Fecal impaction; I10 Essential (primary) hypertension; B96.20 Unspecified Escherichia coli [E. coli] as the cause of diseases classified elsewhere
CPT/HCPCS: 36569; 36410; 36415; 71045; 72131; 74177; 80053; 80202; 81001; 83605; 83690; 83735; 84100; 85007; 85025; 87040; 87077; 87086; 87088; 87186; 92610; 99285; C1751; C9803; J0696; J1335; J2405; J2543; J3370; Q9967; U0003; U0005

== ENCOUNTER 2024-11-21 14:29 | Inpatient (IN) | payer MEDICARE, MEDICAID, SELFPAY ==
--- OUTSIDE RECORDS SUMMARY | 2024-11-20 07:00 | XMS_ITS | Continuity of Care Document ---
Author Organization [address] [place] [address] [address] [place] [address] Phone Care Team Providers Care Endoscopy Technican Name Role Phone Radha Long NP Unavailable Carla vailable Allergies, Adverse Reactions, Alerts Substance Reaction Status Criticality POTASSIUM CLAVULANATE Active No Inf ormation AMOXICILLIN TRIHYDRATE Active No In formation Medications Medication Instructions Dosage Effective Dates (start - stop) Status Comments amlodipine 5 mg tablet - Act izzy loratadine 10 mg tablet - Ac tive polyethylene glycol 3350 17 gram/dose oral powder - Active Banophen 25 mg capsule - Act izzy loperamide 2 mg tablet - Act izzy Stool Softener 100 mg tablet - Active oseltamivir 75 mg capsule - Active neomycin 3.5 mg-polymyxin 10,000 unit-hydrocort 10 mg/mL eye drop,susp - Active albuterol sulfate 1.25 mg/3 mL solution for nebulization - Active azithromycin 250 mg tablet - Active prednisone 5 mg tablet - Act izzy hydrocodone 5 mg-acetaminophen 325 mg tablet - Active nystatin 100,000 unit/gram topical powder - Active furosemide 20 mg tablet - Ac tive mirtazapine 45 mg tablet - A ctive quetiapine 100 mg tablet - A ctive ondansetron HCl 4 mg tablet - Active triamcinolone acetonide 0.1 % topical cream - Active Constulose 10 gram/15 mL oral solution - Active potassium chloride ER 10 mEq tablet,extended release - Active ammonium lactate 12 % lotion - Active zolpidem 5 mg tablet - Activ e ibuprofen 600 mg tablet - Ac tive ibuprofen 400 mg tablet - Ac tive Procedures Procedure Date SBSQ NF CARE SF MDM 10 Trim normal nail, any number Debride mycotic nails 5 or less 025 Trim Dystrophic nail(s) DEBRIDE NAIL 1-5 Trim nail(s) DEBRIDE NAIL 1-5 COMPRE OPH EXAM EST PT 1/> DEBRIDE NAIL 6 OR MORE DEBRIDE NAIL 6 OR MORE DEBRIDE NAIL 6 OR MORE DEBRIDE NAIL 6 OR MORE NURSING FAC CARE SUBSEQ DEBRIDE NAIL 6 OR MORE DEBRIDE NAIL 6 OR MORE DEBRIDE NAIL 6 OR MORE NURSING FAC CARE SUBSEQ NURSING FAC CARE SUBSEQ NURSING FAC CARE SUBSEQ Advance Directives Directive Yes / No Effective Date File Name No Information Encounters Encounter Description Practice Location Reason(s) For Visit Diagnoses Date Provider Providers Copied on Encounter SBS NF CARE SF [facility] [address] [place] [address], [address] [facility], [place], [place], [id number], [place] tel:[phone] [facility] ear care exam (chief complaint) Impacted cerumen, bilateral [place]-Hard nilesh Radha. [address] [facility], [address], [place], [address], [place]. Referring Provider: Jorge Ga. [facility], [address] [place] [address] [address], [place], [place], [id number], [place] tel:[phone] [place] [address] Other specified peripheral vascular diseasesNail dystrophyOnych ogryphosis 5 [place], [place]. [facility], [address] [place], [place] [address] [address], [place], [place], [id number], [place] tel:[phone] [place] [address] Nail dystrophyOnych ogryphosisOthe r abnormalities of gait and mobilityOther specified peripheral vascular diseasesContus ion of left great toe with damage to nail, initial encounter 5 [place], [place]. [facility], [address] [place], [place] [address] [address], [place], [place], [id number], [place] tel:[phone] [facility] Other abnormalities of gait and mobilityOther specified peripheral vascular diseasesNail dystrophyOnych ogryphosis 5 [place], [place]. [facility], [address] [place] [address] [address], [place], [place], [id number], [place] tel:[phone] [place] [address] Encounter for examination of ears and hearing without abnormal findings 5 [place], [place]. Referring Provider: Jorge Ga. [facility], [address] [place] [address] [address], [place], [place], [id number], [place] tel:[phone] [place] [address] Cataract (chief complaint) Combined forms of age-related cataract, bilateral 4 Hugo Newsomea. , [place]. Referring Provider: Jorge Ga. [facility], [address] [place], [place] [address] [address], [place], [place], [id number], [place] tel:[phone] [place] [address] No Information [address] Elliot Lewis. [address] [place] [address] Rd, [address], [place], [address], [place]. [facility], [address] [place] [address] [address], [place], [place], [id number], [place] tel:[phone] [facility] Tinea unguiumOther specified peripheral vascular diseases 4 Elliot Campos [address], [address], [place], [address], [place]. Referring Provider: Jorge Ga. [address] [place] [address], [address] [place] [address] [address], [place], [place], [id number], [place] tel:[phone] [facility] Tinea unguiumOther specified peripheral vascular diseases 4 Elliot Campos [address], [address], [place], [address], [place]. Referring Provider: Jorge Ga. [address] [place] [address], [address] [place], [place] [address] [address], [place], [place], [id number], tel:[phone] [facility] Tinea unguiumOther specified peripheral vascular diseases 3 Elliot Campos [address], [address], [place], [address], [place]. [address] [place] [address], [address] [place] [address] [address], [place], [place], [id number], [place] tel:[phone] [facility] Tinea unguiumOther specified peripheral vascular diseases 3 Elliot Campos [address], [address], [place], [address], [place]. Referring Provider: Jorge Ga. [address] [place] [address], [address] [place] [address], [place], [place], [id number], [place] tel:[phone] [facility] Encounter for dental examination and cleaning without abnormal findings 3 TUAN Mckee. tel:[phone] Referring Provider: Jorge Ga. NURSING FAC CARE SUBSEQ [address] [place] [address], [address] [place] [address] [address], [place], [place], [id number], [place] tel:[phone] [facility] Cataract (chief complaint) Combined forms of age-related cataract, bilateral 3 Yasemin Sandra. [address], [address], [place], [address], [place]. Referring Provider: Jorge Ga. [facility], [address] [place] [address] [address], [place], [place], [id number], [place] tel:[phone] [facility] Other specified peripheral vascular diseasesTinea unguium 3 Elliot Campos [address], [address], [place], [address], [place]. Referring Provider: Jorge Ga. [facility], [address] [place] [address] [address], [place], [place], [id number], [place] tel:[phone] [facility] No Information 3 Elliot Lewis. [address], [address], [place], [address], [place]. [facility], [address] [place] [address] [address], [place], [id number], [place] tel:[phone] [facility] Tinea unguiumOther specified peripheral vascular diseases 2 Elliot Campos [address], [address], [place], [address], [place]. Referring Provider: Jorge Ga. [facility], [address] [place] [address] [address], [place], [place], [id number], [place] tel:[phone] [facility] Tinea unguiumOther specified peripheral vascular diseases 2 Elliot Campos [address] [facility], [address], [place], [address], [place]. Referring Provider: Jorge Ga. NURSING FAC CARE SUBSEQ [facility], [address] [place] [address] [address], [place], [place], [id number], [place] tel:[phone] [facility] Tinea unguiumOther specified peripheral vascular diseases 2 [place], [place]. Referring Provider: Jorge Ga. NURSING FAC CARE SUBSEQ [facility], [address] [place] [address] [address], [place], [place], [id number], [place] tel:[phone] [facility] Tinea unguiumOther specified peripheral vascular diseases Jun- 2 Elliot Lewis. [address] [facility], [address], [place], [place], [facility], . Referring Provider: Cornelius Mccrary. NURSING FAC CARE SUBSEQ [address] [place] [address], [address] [facility], [place], [place], [id number], tel:[phone] [facility] Decreased vision (chief complaint) Combined forms of age-related cataract, bilateral 2 Yasemin Sandra. [address], [address], [place], [facility], . Referring Provider: Jorge Ga. [address] [place] [address], [address] [facility] [address], [place], [address] [place] [address], [phone] [facility] No Information 2 Yasemin Sandra. [address] [facility], [address], [place], [facility], . Family History Family Member Type Diagnosis Age At Onset No Information Payers Payer name Insurance type Covered constitution party ID Authoriza tion(s) Medicare [facility] [id number] Medicaid [facility] [id number] Social History Type Description Quantity Date Captured Comments Alcohol Use Details Unknown Caffeine Use Details Unknown Tobacco Use Status No Information Smoking Status No Information Sex Female Chief Complaint And Reason For Visit From encounter dated '11/20/2024 11:00'. ear care exam (chief complaint) Reason For Referral Reason For Referral No Information Plan Of Treatment Date Type Action Status Appointment Nishi Albarado BOOKED Patient Education Earwax Blockage: Care I nstructions completed Patient Education Learning About Dental Care and Your Health Problem completed History Of Present Illness Encounter Date Complaint History Of Prese nt Illness Cataract The 88 year old patient presents for evaluation of Cataract in the right eye and left eye. It occurs always. The onset was gradual. The symptom is constant. Cataract The 87 year old female presents for evaluation of Cataract in the right eye and left eye. It occurs all the time. The onset was progressive. Eye health eval Decreased vision The 85 year old female presents for evaluation of Decreased vision in the right eye and left eye. It occurs all the time. The onset was gradual. It affects both near and far vision. Broke specs Functional Status Date Functional Assessmen t No Information Instructions Date Instruction Additional Infor lou pt said her ears are tender territory and declined cerumen removal. Reattempt in 6-9 months or sooner if needed. Related to Impacted cerumen, bilateral All of the documente d thickened nails (which includes those nails 2 mm or more in thickness, and possible mycotic component to the nails) were debrided in both length and thickness using both a nail nipper and an electric rotary fusion juncture grinder in an atraumatic fashion as needed ; this was performed in an attempt to prevent pain and reduce risk of infection. Alcohol applied to the digits afterwards. PT tolerated procedure well. Related to Onychogryphosis All documented dystr ophic nails were reduced in length as needed to prevent pain and other symptoms. Patient tolerated procedure well. 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 Reinforced the importance of proper adherence to using the reggie hose, and compression stockings. Will continue to monitor. Related to Other specified peripheral vascular diseases subungual hematoma c leared from nail, nail straightened, Discussed wound care needs with nursing. healing well at this time, no change to treatment or additional intervention at this time. Will continue to monitor. Related to Contusion of left great toe with damage to nail, initial encounter Discussed using comp ression stockings to assist in localize swelling and venous return, and the custodial benefits of using compression stockings. Reinforced the importance of proper adherence to using the reggie hose, and compression stockings. Will continue to monitor. Related to Other specified peripheral vascular diseases PT instructed to con tinue use of DME equipment for safety, mobility, and reducing risk of falls/injury. Will continue to monitor. Pt denies recent falls in the past 3 months. Related to Other abnormalities of gait and mobility All of the documente d thickened nails (which includes those nails 2 mm or more in thickness, and possible mycotic component to the nails) were debrided in both length and thickness using both a nail nipper and an electric rotary fusion juncture grinder in an atraumatic fashion; this was performed in an attempt to prevent pain and reduce risk of infection. Alcohol applied to the digits afterwards. Related to Onychogryphosis All documented dystr ophic nails were reduced in length as needed to prevent pain and other symptoms. Related to Nail dystrophy PT instructed to con tinue use of DME equipment for safety, mobility, and reducing risk of falls/injury. Will continue to monitor. Pt denies recent falls in the past 3 months. Related to Other abnormalities of gait and mobility Discussed using comp ression stockings to assist in localize swelling and venous return, and the custodial benefits of using compression stockings. Reinforced the importance of proper adherence to using the reggie hose, and compression stockings. Will continue to monitor. Related to Other specified peripheral vascular diseases All documented dystr ophic nails were reduced in length as needed to prevent pain and other symptoms. Related to Nail dystrophy All documented thick ened nails were debrided using a rotary tool and nail nipper. Related to Onychogryphosis Normal, bilateral he aring was recorded. Ear disease was not indicated. Related to Encounter for examination of ears and hearing without abnormal findings Return in 12-15 chalino hs for dilated fundus exam. Related to Combined forms of age-related cataract, bilateral Follow up - Return i n 12-15 months for dilated fundus exam. Related to Combined forms of age-related cataract, bilateral Impression/Plan - Ca taracts are visually significant; However, Resident is not a good surgical candidate. Related to Combined forms of age-related cataract, bilateral Toenails 1-5 b/l wer e debrided in length and thickness without incident. Was able to debride toenails to tolerance only. Follow up in 2-3 months. Related to Tinea unguium Toenails 1-5 b/l wer e debrided in length and thickness without incident. Follow up in 2-3 months. Related to Tinea unguium Toenails 1-5 b/l wer e debrided in length and thickness without incident. Was able to debride toenails to tolerance only. Follow up in 2-3 months. Related to Tinea unguium Toenails 1-5 b/l wer e debrided in length and thickness without incident. Follow up in 2-3 months. Related to Tinea unguium We will schedule an appoinment in 12-15 months for a dilated fundus exam. Related to Combined forms of age-related cataract, bilateral Impression/Plan - Ca taracts are visually significant; However, Resident is not a good surgical candidate. Related to Combined forms of age-related cataract, bilateral Follow up - We will schedule an appoinment in 12-15 months for a dilated fundus exam. Related to Combined forms of age-related cataract, bilateral Toenails 1-5 b/l wer e debrided in length and thickness without incident. Follow up in 2-3 months. Related to Tinea unguium Toenails 1-5 b/l wer e debrided in length and thickness without incident. Follow up in 2-3 months. Related to Tinea unguium Toenails 1-5 b/l wer e debrided in length and thickness without incident. Follow up in 2-3 months. Related to Tinea unguium Toenails x3 debrided in length and thickness without incident. Attempted to debride the rest of the toenails and the patient was combative. Follow up in 2-3 months. Related to Tinea unguium The right great toen ail was debrided in length and thickness without incident. Attempted to debride the rest of the toenails and the patient was combative. Follow up in 2-3 months. Related to Tinea unguium We will schedule an appoinment in 12-15 months for a dilated fundus exam. Related to Combined forms of age-related cataract, bilateral Impression/Plan - Ca taracts are moderate and are affecting visual acuity; however, no treatment recommended at this time. We will monitor for progression. Related to Combined forms of age-related cataract, bilateral Follow up - We will schedule an appoinment in 12-15 months for a dilated fundus exam. Related to Combined forms of age-related cataract, bilateral Assessments Type Assessment Date assessment Impacted cerumen, bilateral Patient Care Teams Name Effective Dates (start - stop) Status Members No Information
[2024-11-21] VITALS (12 sets, daily range): BP systolic 102–135; BP diastolic 60–73; PULSE 79–92; RESP 16–25; TEMP 36.9–37.1; O2SAT 82–98; BMI 21.3
--- NOTE | 2024-11-21 14:47 | ED_ITS ---
<Statement entered by Rayne Castellano DO - 11/21/24 17:41> I was consulted by the SARAY, and we discussed the complexity of the problems being addressed. I approved the treatment and management plan for this patient's care in the emergency department, thus performing a substantive portion of the medical decision making. Rayne Castellano DO Discharge Plan Disposition Patient Disposition: Admitted Condition: Good Prescriptions Prescriptions: No Action sennosides [senna] 8.6 mg Tablet 8.6 mg PO DAILY hydrocodone-acetaminophen 5-325 mg tablet 1 tab PO QID ondansetron HCl 4 mg tablet 4 mg PO Q6HP PRN (Reason: NAUSEA/VOMITING) Patient Comments: Give 1 tablet by mouth every 6 hours as needed for nausea\/vomiting quetiapine 100 mg tablet 100 mg PO TID mirtazapine 45 mg tablet 45 mg PO HS furosemide 20 mg tablet 20 mg PO DAILY loratadine 10 mg Tablet 10 mg PO DAILY polyethylene glycol 3350 [Miralax] 17 gram Powder In Packet 17 g PO DAILY Qty: 30 0RF amlodipine 5 mg Tablet 5 mg PO DAILY Qty: 30 0RF Ceftriaxone Sodium [Rocephin 2gm ADV] 2 GM 0.9 % Sodium Chloride [Sod Chloride 0.9% 100mL Adv.] 100 ML 200 mls/hr IV Q24H Reason for use: Infection E.Coli bacteremia (Blood culture from 08/22) Please provide daily for 10 days Ordered By: Chevy Mg MD Last Taken: Unknown Referrals Follow up/Referrals: Provider,Referral, [Primary Care Provider, Medical] - See instructions Clinical Impressions Clinical Impression: Fecal occult blood test positive Anemia Qualifiers: Anemia type: unspecified type Qualified Code(s): D64.9 - Anemia, unspecified Print Language Print Language: Estonian Discharge ED Provider: Rayne Castellano General Adult HPI <CANDIDO Krishnan - Last Filed: 11/21/24 16:50> General Chief complaint: Weakness Stated complaint: lethargy; Hg 6.9 Time Seen by Provider: 11/21/24 14:36 Mode of Arrival: EMS Source of Information: Patient and Relative Limitations: No Limitations History of Present Illness HPI narrative: 89-year-old female presents the emergency department via EMS at the request of her [place] [facility] facility from a lab draw yesterday revealed a hemoglobin of 6.9 , she was sent to the emerged part for further evaluation. Patient the bedside is GCS of 15, alert and oriented to person place and time, she is accompanied by her son today, she denies any fever chills chest pain shortness of breath nausea vomiting constipation diarrhea no abdominal pain, no urinary type symptomatology, no melena no hematochezia no hematemesis or hemoptysis, she does admit to fatigue, as well as decreased appetite , last week. Other past medical history is consistent with anemia, unknown of which type, CKD, hypertension, dementia, GERD, MDD, Initial triage vitals are unremarkable, patient is a former smoker, denies any alcohol or drug use. Please note that above description of symptoms, in this electronic medical record under categorization of recalled from ER triage doctor by RN are reflective of an initial nursing assessment, however, is not reflective of my full history and physical exam that was personally taken and clarified. Consequentially, this preceding description of symptoms, which may include the patient's categorized chief complaint in the EMR, do not reflect my personal clinical impression, and the ultimate description of history of present illness and patient stated complaints should be deferred to this section of the note. Unless stated otherwise or congruent with this section of the note, additional signs, symptoms, or incongruence should be interpreted as inaccurate with my clinical impression. Related Data Home Medications ?Medication ?Instructions ?Recorded ?Confirmed furosemide 20 mg tablet 20 mg PO DAILY Fluid 3 08/22/22 hydrocodone 5 mg-acetaminophen 325 1 tab PO QID Pain 0 08/22/22 08/22/22 mg tablet loratadine 10 mg tablet 10 mg PO DAILY Allergy sympt oms 08/22/22 08/22/22 mirtazapine 45 mg tablet 45 mg PO HS SLEEP/MOOD 08/2208/22/22 ondansetron HCl 4 mg tablet 4 mg PO Q6HP PRN NAUSEA/VO MITING 08/22/22 08/22/22 quetiapine 100 mg tablet 100 mg PO TID MOOD 08/22/22 08/22/22 sennosides 8.6 mg tablet (senna) 8.6 mg PO DAILY const ipation 08/22/22 08/22/22 Previous Rx's ?Medication ?Instructions ?Recorded Ceftriaxone Sodium [Rocephin 2gm 200 mls/hr IV Q24H In fection 08/24/22 ADV] 2 gm amlodipine 5 mg tablet 5 mg PO DAILY #30 tabs 08/24 polyethylene glycol 3350 17 gram 17 g PO DAILY #30 ea 08/24/22 oral powder packet (Miralax) Allergies Allergy/AdvReac Type Severity Reaction Status Date / Time amoxicillin (From Augmentin) Allergy Verified 05/20/18 05:59 clavulanic acid (From Allergy Verified 05/20/18 05:59 Augmentin) [facility] <CANDIDO Krishnan - Last Filed: 11/21/24 16:50> [facility] Disclaimer: The information contained in this section may have been updated after the patient was seen, as this information can be updated by other users. Medical History Allergic rhinitis Alzheimer disease Anxiety Arthralgia of bilateral temporomandibular joint Chronic pain COVID-19 Delusional disorder Dementia Edema GERD (gastroesophageal reflux disease) Hypertension Insomnia Major depressive disorder Malaise Opioid dependence Protein calorie malnutrition Rectal prolapse Urinary tract infection Surgical History No significant past surgical history Family History Other No significant family history Social History Smoking Status: Unknown if ever smoked alcohol intake: never current occupational status: retired Travel in the last 8 weeks?: None Have you lived/traveled outside US in past 30 days?: No Contact w/someone who lives/traveled outside US past 30 days?: No Exposure to someone with infectious disease in past 14 days?: No Do you have a fever (greater than 100.4 F or 38 C)?: No Have you tested positive for COVID-19?: No Exposed to someone with COVID-19 in past 14 days?: No Do you have a sore throat?: No Do you have a cough?: No Do you have any weakness?: No Do you have any diarrhea?: No Are you experiencing any unusual bleeding?: No Do you have any muscle aches/pain?: No Do you have any abdominal pain?: No Are you experiencing loss of taste or smell?: No Other Medical History Have you received the Flu Vaccine for this season: No Have you received the Pneumonia Vaccine: No <CANDIDO Krishnan - Last Filed: 11/21/24 16:50> ROS Obtained: Yes All systems reviewed & no additional complaints except as documented Physical Exam <CANDIDO Krishnan - Last Filed: 11/21/24 16:50> General General appearance: alert, in no apparent distress and cachectic Comment: Cachectic and pale appearing female Head Head exam: atraumatic and normocephalic Eye Eye exam: Present PERRL and EOMI; Absent scleral icterus or jaundice ENT ENT exam: Present mucous membranes moist Neck Neck exam: Present normal inspection Chest Chest inspection: Present normal inspection and symmetric chest wall rise Respiratory Respiratory exam: Present normal lung sounds bilaterally; Absent respiratory distress Cardiovascular Cardiovascular exam: Present regular rate and normal rhythm Abdominal Exam Abdominal exam: Present soft; Absent tenderness, guarding, rebound or rigidity Extremities Exam Extremities exam: Present normal inspection Neurological Exam Neurological exam: Present alert and other (GCS of 14-15, does have some confusion about specific date and time, she states it was October, is oriented to year person and place, does have baseline dementia.); Absent oriented X3 Psychiatric Psychiatric exam: Present normal affect Skin Skin exam: Present warm and dry Medical Decision Making <CANDIDO Krishnan - Last Filed: 11/21/24 16:50> Medical Records Medical records reviewed: Yes I reviewed the patient's medical records. Screening: Per USPSTF and CDC recommendations, given the prevalence of disease in our region, it is our hospital?s policy to screen for HIV and viral Hepatitis for all patients aged 18 and over and those with ongoing risk factors. Eric Inquiry Pt receiving controlled substance: No Eric was queried for this patient: No Vital Signs: 11/21/24 14:29 11/21/24 14:30 11/21/24 14:45 Temperature 98.7 F Temperature Source Oral Pulse Rate 85 87 Pulse Rate [Right Brachial] 83 Respiratory Rate 17 Blood Pressure 110/63 102/60 L Blood Pressure [Right Arm] 124/62 Blood Pressure Mean [Right Arm] 82 Blood Pressure Source [Right Arm] Automatic Cuff Blood Pressure Position [Right Arm] Supine 02 Sat by Pulse Oximetry 95 96 96 Oxygen Delivery Method Room Air 11/21/24 15:00 Temperature Temperature Source Pulse Rate 89 Pulse Rate [Right Brachial] Respiratory Rate Blood Pressure 117/73 Blood Pressure [Right Arm] Blood Pressure Mean [Right Arm] Blood Pressure Source [Right Arm] Blood Pressure Position [Right Arm] 02 Sat by Pulse Oximetry 95 Oxygen Delivery Method Lab Data Lab results reviewed: Yes I reviewed the patient's lab results. Lab Results 11/21/24 15:32: WBC 7.1, RBC 2.48 L, Hgb 7.5 L, Hct 24.0 L, MCV 96.8, MCH 30.2, MCHC 31.3 L, RDW 16.7, Plt Count 524 H, MPV 9.6, Neut % (Auto) 61.8, Lymph % (Auto) 21.4, [place] % (Auto) 14.1 H, Eos % (Auto) 2.1, Baso % (Auto) 0.3, Neut # (Auto) 4.4, Lymph # (Auto) 1.5, [place] # (Auto) 1.0, Eos # (Auto) 0.2, Baso # (Auto) 0.0, PT 10.8, INR 0.97, APTT 24.8, Sodium 129 L, Potassium 3.7, Chloride 93 L, Carbon Dioxide 31 H, Anion Gap 8.7, BUN 16, Creatinine 1.00, Estimated Creat Clear 37, Estimated GFR 52 L, Est GFR ( Amer) 63, Glucose 117 H, Calcium 8.6, Magnesium 2.1, Iron 53, Total Bilirubin 0.2, AST 22, ALT 10 L, A lkaline Phosphatase 139 H, Total Protein 6.6, Albumin 3.3 L, Globulin 3.3 H, A lbumin/Globulin Ratio 1.0 L, Lipase 78, Blood Type B Negative, Antibody Screen Negative 11/21/24 16:00: Urine Color Yellow, Urine Appearance Clear, Urine pH 6.0, Ur Specific Story 1.015, Urine Protein Negative, Urine Glucose (UA) Negative, Urine Ketones Negative, Urine Blood Negative, Urine Nitrate Negative, Urine Bilirubin Negative, Urine Urobilinogen 0.2, Ur Leukocyte Esterase 1+ A 11/21/24 16:10: Stool Occult Blood Positive A 11/21/24 15:32 11/21/24 15:32 Orders (Tests/Meds): ED MEDICATIONS Generic Name Dose Route Start Last Admin Trade Name Freq PRN Reason Stop Dose Admin Pantoprazole Sodium 80 mg/ 100 mls @ 100 mls/hr 11/21/24 16:36 Sodium Chloride IV 11/21/24 17:35 ONCE ONE ORDERS Category Date Time Status Type and Screen Stat BBK 11/21/24 15:32 Completed Consult to Gastroenterology [CONS] Routine Cons 11/21/24 16:34 Active XR chest portable Stat Exams 11/21/24 14:53 Completed Complete Blood Count Auto Diff Stat Lab 11/21/24 15:32 Completed Comprehensive Metabolic Panel Stat Lab 11/21/24 15:32 Completed Ferritin Stat Lab 11/21/24 15:32 Results Iron and TIBC Stat Lab 11/21/24 15:32 Results Lipase Stat Lab 11/21/24 15:32 Completed Magnesium Stat Lab 11/21/24 15:32 Completed Occult Blood,Stool Stat Lab 11/21/24 16:10 Completed PT INR [Prothrombin Time INR] Stat Lab 11/21/24 15:32 Completed PTT [Activated Partial Thrombo Time] Stat Lab 11/21/24 15:32 Completed UA [Urinalysis and Microscopic] Stat Lab 11/21/24 16:00 Results Vitamin B12 Stat Lab 11/21/24 15:32 Results Urine Culture Stat Micro 11/21/24 16:00 Received Medical Decision Narrative: 89-year-old female presents the emergency department with concern for decreased hemoglobin on lab draw yesterday, differential diagnosis include but not limited to, anemia, acute blood loss anemia, hypovolemia, cardiac arrhythmia, electrolyte disturbance, coagulopathy, hypovolemia among others. I discussed this patient's case with the attending physician Will obtain basic laboratory studies, PT/INR, PTT, lipase, magnesium, UA, CXR, EKG, as well as type and screen. Of note, nursing staff noticed some black tarry , stools when attempted to clean the patient and obtaining urinary sample, thus will obtain fecal occult stool test to rule out any melena/GI bleed. And broaden the differential to include GI bleed as a potential cause of the patient's decreased hemoglobin hematocrit. CMP notable for hyponatremia at 129 I reviewed the patient's chest x-ray along the corresponding radiologic report, no acute process, mild right hemidiaphragm that is elevated, which is chronic and in comparison to previous last x-ray 2022 was similar. ALP is minimally elevated at 139, AST and ALT within normal limits, CBC is notable for erythrocyte pi?a 2.4, hemoglobin is 7.5 hematocrit 24, thrombocytosis 524 Coags within normal limits Stool occult blood positive. I discussed this patient's case with the GI physician Dr. Romero at approximately 4:30 PM, he would recommend admission with n.p.o. at midnight and potential EGD versus colonoscopy in the morning to assess for any acute gastrointestinal bleeding in the setting of a positive Hemoccult, and decreased/fluctuating acute drop in hemoglobin per [facility] staff and lower end of normal hemoglobin here today. I will also load the patient with 80 IV milligram Protonix for GI prophylaxis. I discussed this with the patient the bedside patient agreed with current admission plan/treatment plan. UA is notable for 1+ leukocyte esterase, negative hematuria, negative nitrites I did attempt to call the patient's next of kin son (Augie) over the phone at approximately 4:38 PM, there was no answer. Will try again. I discussed this patient's case with Ida Gao APRN with hospitalist service at approximately 4:40 PM, she is agreement with the current admission plan/treatment plan for possible acute GI bleed versus symptomatic anemia, with plan for n.p.o. at midnight and GI consultation/scope in the a.m. Of note, I was able to discuss this patient's case and plan for admission with the patient's next of kin son (Augie Albarado) at approximately 4:48 PM, he states that the patient has had a previous GI bleed that was remote at outside facility ([facility]), around 10 to 15 years ago. Patient's son states this GI bleed was determined/thought to be caused by her taking too many baby aspirin . <Kade Lindquist MD - Last Filed: 11/21/24 16:15> Vital Signs: 11/21/24 14:29 11/21/24 14:30 11/21/24 14:45 Temperature 98.7 F Temperature Source Oral Pulse Rate 85 87 Pulse Rate [Right Brachial] 83 Respiratory Rate 17 Blood Pressure 110/63 102/60 L Blood Pressure [Right Arm] 124/62 Blood Pressure Mean [Right Arm] 82 Blood Pressure Source [Right Arm] Automatic Cuff Blood Pressure Position [Right Arm] Supine 02 Sat by Pulse Oximetry 95 96 96 Oxygen Delivery Method Room Air 11/21/24 15:00 Temperature Temperature Source Pulse Rate 89 Pulse Rate [Right Brachial] Respiratory Rate Blood Pressure 117/73 Blood Pressure [Right Arm] Blood Pressure Mean [Right Arm] Blood Pressure Source [Right Arm] Blood Pressure Position [Right Arm] 02 Sat by Pulse Oximetry 95 Oxygen Delivery Method Lab Data Lab Results 11/21/24 15:32: WBC 7.1, RBC 2.48 L, Hgb 7.5 L, Hct 24.0 L, MCV 96.8, MCH 30.2, MCHC 31.3 L, RDW 16.7, Plt Count 524 H, MPV 9.6, Neut % (Auto) 61.8, Lymph % (Auto) 21.4, [place] % (Auto) 14.1 H, Eos % (Auto) 2.1, Baso % (Auto) 0.3, Neut # (Auto) 4.4, Lymph # (Auto) 1.5, [place] # (Auto) 1.0, Eos # (Auto) 0.2, Baso # (Auto) 0.0, PT 10.8, INR 0.97, APTT 24.8, Sodium 129 L, Potassium 3.7, Chloride 93 L, Carbon Dioxide 31 H, Anion Gap 8.7, BUN 16, Creatinine 1.00, Estimated Creat Clear 37, Estimated GFR 52 L, Est GFR ( Amer) 63, Glucose 117 H, Calcium 8.6, Magnesium 2.1, Iron 53, Total Bilirubin 0.2, AST 22, ALT 10 L, A lkaline Phosphatase 139 H, Total Protein 6.6, Albumin 3.3 L, Globulin 3.3 H, A lbumin/Globulin Ratio 1.0 L, Lipase 78, Blood Type B Negative, Antibody Screen Negative 11/21/24 16:00: Urine Color Yellow, Urine Appearance Clear, Urine pH 6.0, Ur Specific Story 1.015, Urine Protein Negative, Urine Glucose (UA) Negative, Urine Ketones Negative, Urine Blood Negative, Urine Nitrate Negative, Urine Bilirubin Negative, Urine Urobilinogen 0.2, Ur Leukocyte Esterase 1+ A 11/21/24 16:10: Stool Occult Blood Positive A Orders (Tests/Meds): ED MEDICATIONS Generic Name Dose Route Start Last Admin Trade Name Freq PRN Reason Stop Dose Admin Pantoprazole Sodium 80 mg/ 100 mls @ 100 mls/hr 11/21/24 16:36 Sodium Chloride IV 11/21/24 17:35 ONCE ONE ORDERS Category Date Time Status Type and Screen Stat BBK 11/21/24 15:32 Completed Consult to Gastroenterology [CONS] Routine Cons 11/21/24 16:34 Active XR chest portable Stat Exams 11/21/24 14:53 Completed Complete Blood Count Auto Diff Stat Lab 11/21/24 15:32 Completed Comprehensive Metabolic Panel Stat Lab 11/21/24 15:32 Completed Ferritin Stat Lab 11/21/24 15:32 Results Iron and TIBC Stat Lab 11/21/24 15:32 Results Lipase Stat Lab 11/21/24 15:32 Completed Magnesium Stat Lab 11/21/24 15:32 Completed Occult Blood,Stool Stat Lab 11/21/24 16:10 Completed PT INR [Prothrombin Time INR] Stat Lab 11/21/24 15:32 Completed PTT [Activated Partial Thrombo Time] Stat Lab 11/21/24 15:32 Completed UA [Urinalysis and Microscopic] Stat Lab 11/21/24 16:00 Results Vitamin B12 Stat Lab 11/21/24 15:32 Results Urine Culture Stat Micro 11/21/24 16:00 Received Critical Care <Kade Lindquist MD - Last Filed: 11/21/24 16:15> Critical Care Time Critical Care Time: No
--- NOTE | 2024-11-21 14:53 | XR_ITS ---
FINAL REPORT CLINICAL HISTORY: SOA FINDINGS: SINGLE VIEW CHEST The heart is normal in size. Patient is rotated to the right. The lungs are underinflated. There is mild elevation of the right hemidiaphragm. There is no pneumothorax. IMPRESSION: No acute process. Reviewed, Interpreted and Dictated by Manuel Truong MD Transcribed by Annie Gonzalez Authenticated and [facility]
--- NOTE | 2024-11-21 15:16 | PC.NURSE ---
1 unsuccessful IV attempt by Lisa Padilla RN. 2 unsuccessful IV attempts by Ruthie MORALES.
--- NOTE | 2024-11-21 15:20 | PC.NURSE ---
patient reports decrease in appetite, patient alert and oriented x3. no complaints of pain unless labs are being drawn. patient unable to lift her legs on assessment.
--- NOTE | 2024-11-21 15:21 | ECG_ITS ---
APPROVED REPORT Exam: Resting ECG HR:83 bpm ECG Measurements Heart Rate 83 AXES QRSd 98 QRS -29 QT 342 T -7 QTc 381 Conclusion SUPRAVENTRICULAR RHYTHM BORDERLINE LEFT AXIS DEVIATION [QRS AXIS < -20] VOLTAGE CRITERIA FOR LVH [MEETS CRITERIA IN ONE OF: R(aVL), S(V1), R(V5), R(V5/V6)+S(V1)] Electronically signed by : MARYLOU VALLADARES, 11/21/2024 20:08:33
[2024-11-21 15:46] LABS: Hematocrit 24.0 % (37.0-47.0); Hemoglobin 7.5 g/dL (12.2-16.2); Immature Granulocytes % 0.3 %; Mean Corpuscular HGB Conc 31.3 g/dL (31.8-35.4); Mean Corpuscular Hemoglobin 30.2 pg (27.0-31.2); Mean Corpuscular Volume 96.8 fl (81-99); Nucleated Red Blood Cells % 0 %; Platelet Count 524 K/mm3 (142-424); Red Blood Count 2.48 M/mm3 (4.20-5.40); Red Cell Distribution Width-SD 59.5 fL; White Blood Count 7.1 K/mm3 (4.8-10.8)
--- NOTE | 2024-11-21 15:49 | PC.NURSE ---
Yvonne from [facility]. [facility] called for an update. I updated her.
[2024-11-21 16:02] LABS: Activated Partial Thrombo Time 24.8 seconds (22.8-30.6)
[2024-11-21 16:05] LABS: Albumin Level 3.3 g/dl (3.5-5.0); Chloride 93 mmol/L (98-107)
[2024-11-21 16:06] LABS: Potassium 3.7 mmoL/L (3.5-5.1); Sodium 129 mmol/L (136-145)
[2024-11-21 16:08] LABS: Alanine Aminotransferase 10 U/L (12-78); Albumin/Globulin Ratio 1.0 (1.1-1.8); Alkaline Phosphatase 139 U/L (38-126); Anion Gap 8.7 mEq/L (5-15); Aspartate Amino Transferase 22 U/L (14-36); Bilirubin,Total 0.2 mg/dl (0.2-1.3); Blood Urea Nitrogen 16 mg/dl (7-17); Carbon Dioxide 31 mmol/L (22.0-30.0); Creatinine Clearance Estimated 37 mL/min (50-200); Creatinine,Serum 1.00 mg/dl (0.52-1.04); Estimated Glomerular Filt Rate 52 ml/min (>60); GFR (African American) 63 ML/MIN (>60); Globulin 3.3 g/dL (1.3-3.2); Total Protein,Serum 6.6 g/dl (6.3-8.2)
[2024-11-21 16:09] LABS: Calcium 8.6 mg/dl (8.4-10.2); Glucose 117 mg/dl (74-100); Lipase 78 U/L (23-300); Magnesium 2.1 mg/dl (1.6-2.3)
[2024-11-21 16:20] LABS: Microscopic, Urine URINE MICROSCOPIC (MICROSCOPIC)
[2024-11-21 16:20] LABS: INR 0.97 (0.9-1.1); Prothrombin Time 10.8 seconds (10.1-12.5)
[2024-11-21 16:22] LABS: Occult Blood,Stool Positive (Negative)
[2024-11-21 16:28] LABS: Bilirubin,Urine Negative (Negative); Color,Urine YELLOW (Yellow); Glucose,Urine (UA) Negative (Negative); Ketones,Urine Negative (Negative); Leukocyte Esterase,Urine 1+ (Negative); PH,Urine 6.0 (5.0-8.5); Protein,Urine Negative (Negative); Specific Gravity, Urine 1.015 (1.005-1.030); Urobilinogen,Urine 0.2 EU/dl (0.2)
--- NOTE | 2024-11-21 16:44 | PC.NURSE ---
[facility] notified of the need for a bed to admit the pt for symptomatic anemia and possible GI bleed. Nick to scope in the AM.
[2024-11-21 16:47] LABS: Iron 53 ug/dL (37-170)
[2024-11-21 16:56] LABS: Total Iron Binding Capacity 211 ug/dL (265-497)
[2024-11-21 17:01] LABS: Bacteria,Urine 4+ /lpf; Calcium Oxalate Crystals,Urine 1+ /lpf
[2024-11-21] MEDS: PANTOPRAZOLE SODIUM 80 MG in 0.9 % SODIUM CHLORIDE 100 ML 100 MG IV (17:02)
--- NOTE | 2024-11-21 17:03 | P.HP_ITS ---
<Statement entered by Zack Diaz MD - 11/21/24 18:45> Rounded on patient after nurse practitioner. Personally examined and interviewed patient. Agree with exam findings and care plan as documented. History of Present Illness *Admission Date: 11/21/24 *Reason for visit:: Anemia, weakness *History of present illness: Ms. Albarado is a 89-year-old female that resides at [facility]. She was brought into the emergency department today via EMS after it was found that her lab work that was obtained yesterday by the group home showed her hemoglobin of 6.9. Per group home staff she has been weaker and more lethargic recently and they were concerned something was wrong. Patient is alert to person, place, time and is accompanied by her son. She does denies shortness of breath, chest pain, nausea, vomiting, constipation, diarrhea, abdom inal pain, urinary symptoms, fever, hemoptysis, or melena. Hemoglobin today is 7.5. Hemoccult stool was positive. Patient is not on antiplatelet or anticoag therapy. She does have a primary medical history of CKD, GERD, dementia, chronic pain, depression, hypertension, congestive heart failure. [facility] Disclaimer: The information contained in this section may have been updated after the patient was seen, as this information can be updated by other users. Medical History Dementia Alzheimer disease Protein calorie malnutrition Edema Allergic rhinitis Urinary tract infection Arthralgia of bilateral temporomandibular joint Insomnia COVID-19 Opioid dependence Chronic pain Malaise Anxiety GERD (gastroesophageal reflux disease) Hypertension Major depressive disorder Delusional disorder Rectal prolapse Surgical History No significant past surgical history Family History Other No significant family history Social History (Updated 11/21/24 @ 18:05 by Malissa Mejia RN) Smoking Status: Unknown if ever smoked alcohol intake: never current occupational status: retired Travel in the last 8 weeks?: None Have you lived/traveled outside [place] in past 30 days?: No Contact w/someone who lives/traveled outside US past 30 days?: No Exposure to someone with infectious disease in past 14 days?: No Do you have a fever (greater than 100.4 F or 38 C)?: No Have you tested positive for COVID-19?: No Exposed to someone with COVID-19 in past 14 days?: No Do you have a sore throat?: No Do you have a cough?: No Do you have any weakness?: No Are you experiencing any nausea/vomitting?: No Do you have any diarrhea?: No Are you experiencing any unusual bleeding?: No Do you have any muscle aches/pain?: No Do you have any abdominal pain?: No Are you experiencing loss of taste or smell?: No Other Medical History Have you received the Flu Vaccine for this season: No Have you received the Pneumonia Vaccine: No Review of Systems Review of Systems Review of systems:: pertinent systems reviewed and negative unless documented below Constitutional Constitutional: Reports weakness *Gastrointestinal Gastrointestinal: Reports fecal incontinence and Reports melena *Genitourinary Genitourinary: Reports urinary incontinence *Musculoskeletal Musculoskeletal: Reports atrophy and Reports muscle weakness Comments: Unable to ambulate *Neurologic Neurologic: Reports weakness Meds Home Medications and Allergies Home Medications ?Medication ?Instructions ?Recorded ?Confirmed ?Type furosemide 20 mg tablet 20 mg PO DAILY Fluid 3 11/21/24 History hydrocodone 5 mg-acetaminophen 325 1 tab PO QID Pain 0 08/22/22 11/21/24 History mg tablet loratadine 10 mg tablet 10 mg PO DAILY Allergy sympt oms 08/22/22 11/21/24 History mirtazapine 45 mg tablet 45 mg PO HS SLEEP/MOOD 08/2211/21/24 History quetiapine 100 mg tablet 100 mg PO TID MOOD 08/22/22 11/21/24 History sennosides 8.6 mg tablet (senna) 8.6 mg PO DAILY const ipation 08/22/22 11/21/24 History amlodipine 5 mg tablet 5 mg PO DAILY #30 tabs 08/2411/21/24 Rx polyethylene glycol 3350 17 gram 17 g PO DAILY #30 ea 08/24/22 11/21/24 Rx oral powder packet (Miralax) acetaminophen 500 mg tablet 500 mg PO Q6H PRN Breakthr ough 11/21/24 11/21/24 History Pain, Mild New Prescriptions to Start Prescriptions: Allergies Allergy/AdvReac Type Severity Reaction Status Date / Time amoxicillin (From Augmentin) Allergy Verified 05/20/18 05:59 clavulanic acid (From Allergy Verified 05/20/18 05:59 Augmentin) Exam Data for Last 24 hours Vital signs and Labs for Last 24 Hours: Temp Pulse Resp BP Pulse Ox O2 Del Method 98.7 F 89 17 117/73 95 Room Air 11/21/24 14:29 11/21/24 15:00 11/21/24 14:29 11/21/24 15:00 11/21/24 15:00 11/21/24 14:29 Laboratory Results - last 24 hr 11/21/24 15:32: WBC 7.1, RBC 2.48 L, Hgb 7.5 L, Hct 24.0 L, MCV 96.8, MCH 30.2, MCHC 31.3 L, RDW 16.7, Plt Count 524 H, MPV 9.6, Neut % (Auto) 61.8, Lymph % (Auto) 21.4, [place] % (Auto) 14.1 H, Eos % (Auto) 2.1, Baso % (Auto) 0.3, Neut # (Auto) 4.4, Lymph # (Auto) 1.5, [place] # (Auto) 1.0, Eos # (Auto) 0.2, Baso # (Auto) 0.0, PT 10.8, INR 0.97, APTT 24.8, Sodium 129 L, Potassium 3.7, Chloride 93 L, Carbon Dioxide 31 H, Anion Gap 8.7, BUN 16, Creatinine 1.00, Estimated Creat Clear 37, Estimated GFR 52 L, Est GFR ( Amer) 63, Glucose 117 H, Calcium 8.6, Magnesium 2.1, Iron 53, TIBC 211 L, Iron Saturation 25.60981, Total Bilirubin 0.2, AST 22, ALT 10 L, Alkaline Phosphatase 139 H, Total Protein 6.6, Albumin 3.3 L, Globulin 3.3 H, Albumin/Globulin Ratio 1.0 L, Lipase 78, Blood Type B Negative, Antibody Screen Negative 11/21/24 16:00: Urine Color Yellow, Urine Appearance Clear, Urine pH 6.0, Ur Specific [place] 1.015, Urine Protein Negative, Urine Glucose (UA) Negative, Urine Ketones Negative, Urine Blood Negative, Urine Nitrate Negative, Urine Bilirubin Negative, Urine Urobilinogen 0.2, Ur Leukocyte Esterase 1+ A, Urine RBC None, Urine WBC 3-5, Ur Squamous Epith Cells None, Calcium Oxalate Crystal 1+, Urine Bacteria 4+ 11/21/24 16:10: Stool Occult Blood Positive A I & O for Last 24 hours: Intake & Output 11/18/24 11/19/24 11/20/24 11/21/24 23:59 23:59 23:59 23:59 Weight 59.874 kg Constitutional Constitutional: chronically ill appearing, cooperative and agitated *Routine HEENT Exam Head: Present normocephalic and atraumatic Eye: Present EOMI ENT: Present mucous membranes moist *Routine Neck Exam Neck: Present full ROM; Absent JVD *Routine Respiratory Exam Respiratory: Present CTA bilaterally, normal respiratory effort, able to speak in complete sentences and symmetric chest movement; Absent wheezes or crackles *Routine Cardiovascular Exam Cardiovascular: Present RRR; Absent murmur *Routine Abdominal Exam Abdominal: Present soft and normoactive bowel sounds; Absent tenderness or dist ended *Routine Rectal Exam Rectal:: deferred *Routine Genitalia Exam Genitalia:: normal female *Routine Extremities Exam Extremities: Present pallor; Absent edema *Routine Skin Exam Skin: Present dry and pallor; Absent erythema or rash *Routine Neurological Exam Neurological: Present alert and moving all extremities Comments: Oriented to self, situation Assessment and Plan *Assessment and plan (1) Anemia: Status: Acute Qualifiers: Anemia type: unspecified type Qualified Code(s): D64.9 - Anemia, unspecified Category: Medical Code(s): D64.9 - Anemia, unspecified (2) Fecal occult blood test positive: Status: Acute Category: Medical Code(s): R19.5 - Other fecal abnormalities (3) Dementia: Status: Acute Category: Medical Code(s): F03.90 - Unspecified dementia, unspecified severity, without behavioral disturbance, psychotic disturbance, mood disturbance, and anxiety (4) Chronic pain: Status: Acute Category: Medical Code(s): G89.29 - Other chronic pain (5) Anxiety: Status: Acute Category: Medical Code(s): F41.9 - Anxiety disorder, unspecified (6) Major depressive disorder: Status: Acute Category: Medical Code(s): F32.9 - Major depressive disorder, single episode, unspecified (7) Hypertension: Status: Acute Category: Medical Code(s): I10 - Essential (primary) hypertension (8) Weakness: Status: Acute Category: Medical Code(s): R53.1 - Weakness Plan Ms. Albarado is a 89-year-old female that resides at [facility]. She was brought into the emergency department today via EMS after it was found that her lab work that was obtained yesterday by the group home showed her hemoglobin of 6.9. Per group home staff she has been weaker and more lethargic recently and they were concerned something was wrong. Patient is alert to person, place, time and is accompanied by her son. She does denies shortness of breath, chest pain, nausea, vomiting, constipation, diarrhea, abdominal pain, urinary symptoms, fever, hemoptysis, or melena. Hemoglobin today is 7.5. Hemoccult stool was positive. Patient is not on antiplatelet or anticoag therapy. She does have a primary medical history of CKD, GERD, dementia, chronic pain, depression, hypertension, congestive heart failure. Hospital medicine was consulted by CANDIDO Bryan who requested admission for patient for further monitoring of potential GI bleed. I agreed to accept the patient, plan of care as follows: #Anemia #Fecal occult blood test positive ? Workup in the ED reveals patient is anemic with a hemoglobin of 7.5 today. Patient was typed and screened out of precaution. Transfuse less than 6.5. Patient does appear symptomatic, weak, pallor, lethargic. Patient does have a primary history of dementia but is able to identify where she is, who she is, her birthday, situation. ? Vital signs stable, normotensive, afebrile. chest x-ray interpreted by me shows no acute findings, no effusions, no notable pneumonia. ? Dr. Romero, GI, was consulted for further recommendations. Plans to have EGD tomorrow morning, patient n.p.o. after midnight. ? Patient did have bowel movement that appeared tarry and dark in ED, Hemoccult stool was also positive. Patient is not noted to be on oral anticoagulation/antiplatelet medications. ? Protonix 40 mg IV twice daily, Zofran 4 mg as needed. ? ordered CBC, CMP, magnesium in the a.m. #Weakness ? Patient's son at bedside states patient is essentially bedridden, she does not get up to the chair or ambulate. Patient will be every 2 hours turns. Patient has small pressure area on coccyx, Mepilex dressing in place. #Dementia #Anxiety #MDD ? Continue quetiapine 100 mg 3 times daily, mirtazapine 45 mg at bedtime?after med rec is complete. #Chronic pain ? Continue [place] 5/325 mg 4 times daily as needed for pain. ? Continue MiraLAX 17 g daily, senna 8.6 mg daily for opioid-induced constipation. #Hypertension ? Continue amlodipine 5 mg daily, furosemide 20 mg daily?after med rec is complete. Full code VTE?[facility]'s Ambulate as tolerated N.p.o. after midnight
--- NOTE | 2024-11-21 17:11 | PC.NURSE ---
report called to [facility] and given to Jana MORALES.
[2024-11-21 17:21] LABS: Ferritin 45.0 ng/ml (11.1-264)
[2024-11-21 17:53] LABS: Vitamin B12 783 pg/mL (239-931)
--- NOTE | 2024-11-21 18:13 | PC.WOUNDNOTE ---
1CM AREA NOTED TO TOP OF BUTTOCK. SHEARING OF TOP LAYER OF SKIN NOTED.
[2024-11-21] MEDS: HYDROCODONE/APAP 5/325 MG TABLET 1 TAB PO (19:32)
[2024-11-21] MEDS: MIRTAZAPINE 45 MG 45 EACH PO (20:25)
[2024-11-21] MEDS: QUETIAPINE 100MG TABLET 100 MG PO (20:25)
[2024-11-21] MEDS: PANTOPRAZOLE 40MG VIAL 40 MG IV (20:25)
[2024-11-21] MEDS: ACETAMINOPHEN 325MG TAB 650 MG PO (21:48)
[2024-11-21] MEDS: MORPHINE 2MG/ML SYRINGE 2 MG IV (22:55)
[2024-11-21] MEDS: 0.9 % SODIUM CHLORIDE 1000ML 500 ML 250 ML IV (22:56)
[2024-11-22] VITALS (24 sets, daily range): BP systolic 112–157; BP diastolic 53–82; PULSE 66–82; RESP 14–18; TEMP 36.2–37.1; O2SAT 94–98; BMI 22.5
[2024-11-22] MEDS: LACTATED RINGERS 1000ML 1,000 ML 75 ML IV (00:40)
--- NOTE | 2024-11-22 04:01 | PC.NURSE ---
Pt A&O x3 (Person, Time, Situation). Pt disoriented to Place. Pt VSS. Pt is on RA. Pt last recorded HgB was 7.5. Pt NPO at CT for possible EGD & GI consult. Pt has no obvious signs of bleeding. Pt is very forgetful & Anxious. Pt continually requesting Pain Tablet . Pt medicated per JUN w/ ordered normal pain medication & still requesting the medication. MD notified and ordered 2MG of Morphine IVP once. Pt was also given of bolus of fluids and started on maintenance IV fluids. Pt medicated per JUN/. Pt not voicng any additional concerns at this time. Pt resting w/ call light in reach. POC ongoing.
[2024-11-22] MEDS: HYDROCODONE/APAP 5/325 MG TABLET 1 TAB PO ×2 (05:29→12:40)
[2024-11-22 06:09] LABS: Albumin Level 2.7 g/dl (3.5-5.0)
[2024-11-22 06:10] LABS: Chloride 98 mmol/L (98-107); Potassium 3.3 mmoL/L (3.5-5.1); Sodium 128 mmol/L (136-145)
[2024-11-22 06:11] LABS: Hematocrit 21.7 % (37.0-47.0); Immature Granulocytes % 0.3 %; Mean Corpuscular HGB Conc 30.4 g/dL (31.8-35.4); Mean Corpuscular Hemoglobin 29.3 pg (27.0-31.2); Mean Corpuscular Volume 96.4 fl (81-99); Nucleated Red Blood Cells % 0 %; Platelet Count 426 K/mm3 (142-424); Red Blood Count 2.25 M/mm3 (4.20-5.40); Red Cell Distribution Width-SD 58.4 fL; White Blood Count 6.7 K/mm3 (4.8-10.8)
[2024-11-22 06:12] LABS: Alanine Aminotransferase 8 U/L (12-78); Albumin/Globulin Ratio 0.9 (1.1-1.8); Alkaline Phosphatase 108 U/L (38-126); Anion Gap 4.3 mEq/L (5-15); Aspartate Amino Transferase 18 U/L (14-36); Blood Urea Nitrogen 14 mg/dl (7-17); Carbon Dioxide 29 mmol/L (22.0-30.0); Creatinine Clearance Estimated 39 mL/min (50-200); Creatinine,Serum 0.90 mg/dl (0.52-1.04); Estimated Glomerular Filt Rate 59 ml/min (>60); GFR (African American) 71 ML/MIN (>60); Globulin 3.0 g/dL (1.3-3.2); Total Protein,Serum 5.7 g/dl (6.3-8.2)
[2024-11-22 06:13] LABS: Calcium 7.7 mg/dl (8.4-10.2); Cholesterol 129 mg/dl (140-200); Glucose 93 mg/dl (74-100); HDL Cholesterol 54 mg/dl (40-60); Hemoglobin 6.6 g/dL (12.2-16.2); Magnesium 1.8 mg/dl (1.6-2.3); Phosphorous 2.9 mg/dl (2.5-4.5); Triglycerides 79 mg/dl (30-150)
--- NOTE | 2024-11-22 06:15 | PC.NURSE ---
notified of critical lab result of HgB 6.6.
--- NOTE | 2024-11-22 06:22 | PC.NURSE ---
Anabella MORALES and this RN spoke with patient son Augie for consent on 1 unit of blood, states he agrees. Son is on the way to the hospital.
[2024-11-22 06:26] LABS: Bilirubin,Total 0.1 mg/dl (0.2-1.3)
--- NOTE | 2024-11-22 07:49 | HMH.PHAINT1 ---
Pharmacy Intervention Comments: HOME MEDICATION LIST VERIFIED USING LIST FROM [facility]
[2024-11-22] MEDS: SODIUM CHLORIDE 0.9% 10ML VIAL 10 ML IV ×2 (08:31→20:21)
[2024-11-22] MEDS: QUETIAPINE 100MG TABLET 100 MG PO ×3 (08:31→20:21)
[2024-11-22] MEDS: PANTOPRAZOLE 40MG VIAL 40 MG IV ×2 (08:31→20:21)
--- NOTE | 2024-11-22 10:03 | P.PN_ITS ---
<Statement entered by Zack Diaz MD - 11/22/24 15:09> Rounded on patient after nurse practitioner. Personally examined and interviewed patient. Agree with exam findings and care plan as documented. Subjective *Date: 11/22/24 *Time: 15:08 Interval history: Patient looks well this morning, lying in bed. Complains of indigestion epigastric burning. Patient given Protonix 40 mg IV. Patient n.p.o. this morning for EGD. Vitals remain stable. Patient getting 1 unit PRBC for hemoglobin of 6.6 this a.m. Medical Exam Vital signs and Labs for Last 24 Hours: Vital Signs Temp Pulse Pulse Resp BP BP Pulse Ox 11/22/24 09:58 98.1 F 81 18 126/53 L 95 11/22/24 09:55 98.2 F 79 17 132/76 95 11/22/24 09:08 97.9 F 80 14 148/82 H 97 11/22/24 08:52 11/22/24 08:00 97.9 F 80 14 148/82 H 97 11/22/24 08:00 11/22/24 06:53 11/22/24 04:00 98.0 F 81 18 147/68 H 96 11/22/24 03:00 11/22/24 01:00 11/21/24 23:00 11/21/24 21:00 11/21/24 19:50 11/21/24 19:50 98.4 F 90 18 112/65 95 11/21/24 18:23 11/21/24 17:34 98.5 F 79 18 135/61 11/21/24 17:00 87 23 130/72 83 L 11/21/24 16:57 11/21/24 16:45 85 25 H 130/65 96 11/21/24 16:30 85 20 128/67 96 11/21/24 16:20 92 H 16 134/66 82 L 11/21/24 15:45 81 96 11/21/24 15:30 86 98 11/21/24 15:00 89 117/73 95 11/21/24 14:45 87 102/60 L 96 11/21/24 14:30 85 110/63 96 11/21/24 14:29 98.7 F 83 17 124/62 95 O2 Del Method 11/22/24 09:58 11/22/24 09:55 11/22/24 09:08 Room Air 11/22/24 08:52 Room Air 11/22/24 08:00 Room Air 11/22/24 08:00 Room Air 11/22/24 06:53 Room Air 11/22/24 04:00 Room Air 11/22/24 03:00 Room Air 11/22/24 01:00 Room Air 11/21/24 23:00 Room Air 11/21/24 21:00 Room Air 11/21/24 19:50 Room Air 11/21/24 19:50 Room Air 11/21/24 18:23 Room Air 11/21/24 17:34 Room Air 11/21/24 17:00 11/21/24 16:57 Room Air 11/21/24 16:45 11/21/24 16:30 11/21/24 16:20 11/21/24 15:45 11/21/24 15:30 11/21/24 15:00 11/21/24 14:45 11/21/24 14:30 11/21/24 14:29 Room Air Intake and Output 11/21/24 11/22/24 11/22/24 23:59 07:59 15:59 Intake Total 730 / 1210 480 / 1210 Output Total 275 / 275 Balance 455 / 935 480 / 935 Intake: Intake, Oral Amount 480 / 480 Intake, Total IV Amount 480 / 480 0.9 % Sodium Chloride 1000ML 480 / 480 500 ml @ 250 mls/hr IV .Q2H ONE Rx#:[id number] Infusion Intake 250 / 250 0.9 % Sodium Chloride 1000ML 250 / 250 500 ml @ 250 mls/hr IV .Q2H ONE Rx#:[id number] Intake (Blood Product) Amt 0 / 0 Red Blood Cells Unit 0 / 0 [id number] Output: Output, Urine Amount 275 / 275 Other: Weight 63.639 kg Patient Weight 11/22/24 23:59 Weight 63.639 kg Laboratory Results - last 24 hr 11/21/24 15:32: WBC 7.1, RBC 2.48 L, Hgb 7.5 L, Hct 24.0 L, MCV 96.8, MCH 30.2, MCHC 31.3 L, RDW 16.7, Plt Count 524 H, MPV 9.6, Neut % (Auto) 61.8, Lymph % (Auto) 21.4, [place] % (Auto) 14.1 H, Eos % (Auto) 2.1, Baso % (Auto) 0.3, Neut # (Auto) 4.4, Lymph # (Auto) 1.5, [place] # (Auto) 1.0, Eos # (Auto) 0.2, Baso # (Auto) 0.0, PT 10.8, INR 0.97, APTT 24.8, Sodium 129 L, Potassium 3.7, Chloride 93 L, Carbon Dioxide 31 H, Anion Gap 8.7, BUN 16, Creatinine 1.00, Estimated Creat Clear 37, Estimated GFR 52 L, Est GFR ( Amer) 63, Glucose 117 H, Calcium 8.6, Magnesium 2.1, Iron 53, TIBC 211 L, Iron Saturation 25.08045, Ferritin 45.0, Total Bilirubin 0.2, AST 22, ALT 10 L, Alkaline Phosphatase 139 H , Total Protein 6.6, Albumin 3.3 L, Globulin 3.3 H, Albumin/Globulin Ratio 1.0 L , Lipase 78, Vitamin B12 783, Blood Type B Negative, Antibody Screen Negative, Crossmatch (AHG) See Detail 11/21/24 16:00: Urine Color Yellow, Urine Appearance Clear, Urine pH 6.0, Ur Specific [place] 1.015, Urine Protein Negative, Urine Glucose (UA) Negative, Urine Ketones Negative, Urine Blood Negative, Urine Nitrate Negative, Urine Bilirubin Negative, Urine Urobilinogen 0.2, Ur Leukocyte Esterase 1+ A, Urine RBC None, Urine WBC 3-5, Ur Squamous Epith Cells None, Calcium Oxalate Crystal 1+, Urine Bacteria 4+ 11/21/24 16:10: Stool Occult Blood Positive A 11/22/24 05:20: Blood Type Confirm B Negative 11/22/24 05:30: WBC 6.7, RBC 2.25 L, Hgb 6.6 L*, Hct 21.7 L, MCV 96.4, MCH 29.3, MCHC 30.4 L, RDW 16.6, Plt Count 426 H, MPV 9.9, Neut % (Auto) 50.2, Lymph % (Auto) 27.7, [place] % (Auto) 17.8 H, Eos % (Auto) 3.7, Baso % (Auto) 0.3, Neut # (Auto) 3.4, Lymph # (Auto) 1.9, [place] # (Auto) 1.2 H, Eos # (Auto) 0.3, Baso # (Auto) 0.0, Sodium 128 L, Potassium 3.3 L, Chloride 98, Carbon Dioxide 29, Anion Gap 4.3 L, BUN 14, Creatinine 0.90, Estimated Creat Clear 39, Estimated GFR 59, Est GFR ( Amer) 71, Glucose 93 D, Calcium 7.7 L, Phosphorus 2.9, Magnesium 1.8 D, Total Bilirubin 0.1 L, AST 18, ALT 8 L, Alkaline Phosphatase 108, Total Protein 5.7 L, Albumin 2.7 L D, Globulin 3.0, Albumin/Globulin Ratio 0.9 L, Triglycerides 79, Cholesterol 129 L, LDL Cholesterol Direct 42.99 L, VLDL Cholesterol 16, HDL Cholesterol 54, Cholesterol/HDL Ratio 2.4 I & O for Labs for Last 24 Hours: Intake & Output 11/19/24 11/20/24 11/21/24 11/22/24 23:59 23:59 23:59 23:59 Intake Total 1210 / 1210 Output Total 275 / 275 Balance 935 / 935 Weight 59.874 kg 63.639 kg Constitutional: Present no acute distress, chronically ill appearing and cooperative Head: Present atraumatic Eyes: Present as per HPI ENT: Present normal exam Neck: Present normal inspection Respiratory: Present CTA bilaterally, able to speak in complete sentences and symmetric chest movement; Absent crackles Cardiac: Present Reg Rate and Rhythm; Absent No Murmur GI: Present soft and hypoactive bowel sounds; Absent tenderness Rectal (female): Present deferred (female): Present deferred Extremities: Present normal inspection; Absent edema Skin: Present intact and dry; Absent rash Comment:: Stage I sacral pressure wound Neuro: Present alert and awake Comment:: Able to tell me name, birthday Assessment and Plan *Assessment and plan (1) Anemia: Status: Acute Qualifiers: Anemia type: unspecified type Qualified Code(s): D64.9 - Anemia, unspecified Category: Medical Code(s): D64.9 - Anemia, unspecified (2) Fecal occult blood test positive: Status: Acute Category: Medical Code(s): R19.5 - Other fecal abnormalities (3) Dementia: Status: Acute Category: Medical Code(s): F03.90 - Unspecified dementia, unspecified severity, without behavioral disturbance, psychotic disturbance, mood disturbance, and anxiety (4) Chronic pain: Status: Acute Category: Medical Code(s): G89.29 - Other chronic pain (5) Anxiety: Status: Acute Category: Medical Code(s): F41.9 - Anxiety disorder, unspecified (6) Major depressive disorder: Status: Acute Category: Medical Code(s): F32.9 - Major depressive disorder, single episode, unspecified (7) Hypertension: Status: Acute Category: Medical Code(s): I10 - Essential (primary) hypertension (8) Weakness: Status: Acute Category: Medical Code(s): R53.1 - Weakness Plan Ms. Albarado is a 89-year-old female that resides at [facility]. She was brought into the emergency department via EMS after it was found that her lab work that was obtained 11/20/2024 by the senior living showed her hemoglobin of 6.9. Per senior living staff she has been weaker and more lethargic recently and they were concerned something was wrong. Patient is alert to person, place, time and is accompanied by her son. She does denies shortness of breath, chest pain, nausea, vomiting, constipation, diarrhea, abdominal pain, urinary symptoms, fever, hemoptysis, or melena. Hemoglobin on admission was 7.5. Hemoccult stool was positive. Patient is not on antiplatelet or anticoag therapy. She does have a primary medical history of CKD, GERD, dementia, chronic pain, depression, hypertension, congestive heart failure. Hospital medicine was consulted by CANDIDO Bryan who requested admission for patient for further monitoring of potential GI bleed. I agreed to accept the patient, plan of care as follows: #Anemia #Fecal occult blood test positive ? Patient had EGD this morning with Dr. Romero, per discussion, he found a large distal esophageal ulcer, mild chronic gastritis. ? Patient's hemoglobin this morning was 6.6, 1 unit PRBCs ordered to transfuse now. Postop H&H stable hemoglobin 9.0. ? Patient complains this morning of epigastric burning, Protonix ordered. Patient is n.p.o. for procedure, regular diet postprocedure. ? Vital signs remain stable, normotensive, afebrile. Chest x-ray on admission interpreted by me shows no acute findings, no effusions, no notable pneumonia. ? Patient did have bowel movement that appeared tarry and dark in ED, Hemoccult stool was also positive yesterday. Patient has not had any more bowel movements overnight. ? Protonix 40 mg IV twice daily, Zofran 4 mg as needed. ? ordered CBC, CMP, magnesium in the a.m. #Weakness ? Patient essentially bedridden, she does not get up to the chair or ambulate. ? Patient will be every 2 hours turns. Patient has small pressure area on coccyx, Mepilex dressing in place. #Dementia #Anxiety #MDD ? Continue quetiapine 100 mg 3 times daily, mirtazapine 45 mg at bedtime. #Chronic pain ? [place] 5/325 mg 4 times daily at this time, monitoring for toxicity. ? Continue MiraLAX 17 g daily, senna 8.6 mg daily for opioid-induced constipation. #Hypertension ? Patient normotensive, holding amlodipine and furosemide 20 mg at this time. Full code VTE?[facility]'s N.p.o. after midnight, regular diet for dinner
--- NOTE | 2024-11-22 10:16 | EXP.ANES.CKL ---
[facility] Disclaimer: The information contained in this section may have been updated after the patient was seen, as this information can be updated by other users. Medical History Dementia Alzheimer disease Protein calorie malnutrition Edema Allergic rhinitis Urinary tract infection Arthralgia of bilateral temporomandibular joint Insomnia COVID-19 Opioid dependence Chronic pain Malaise Anxiety GERD (gastroesophageal reflux disease) Hypertension Major depressive disorder Delusional disorder Rectal prolapse Surgical History No significant past surgical history Family History Other No significant family history Social History Smoking Status: Unknown if ever smoked alcohol intake: never substance use type: unknown current occupational status: retired Travel in the last 8 weeks?: None [facility] Anesthesia Checklist Patient Identification Patient Identification: Arm Band and Verbal (Name & ) Structural Data Admitted From: Inpatient Planned Operative Procedure/s: EGD Consent for Planned Operative Procedure(s) Verified: Yes Verified Documents: Surgical Consent and History and Physical NPO Status Verified Time NPO: 00:00 Chart Verification Results Verified: CBC, H & H and Type and Screen Additional verifications Anesthesia Reactions: No Hx Blood Transfusions: Yes Blood Transfusion Reaction: No Previous Colonoscopy: Yes Airway Assessment Mallampati Score:: Class II Dentition: Edentulous Neurological Assessment Level of Consciousness: Awake, Alert and Appropriate Hx Seizures: No Numbness or tingling in extremities: No Anesthesia Plan Anesthesia Risk discussed: Yes Anesthesia Plan: Verified ASA Class: III Anesthesia Type: MAC
--- NOTE | 2024-11-22 10:26 | SW/DCPLANNER ---
Addendum entered by Noreen Saldana 11/23/24 09:43: I have updated Kandice w/ [facility] that patient will discharge back today. Original Note: Patient currently resides at [facility] level of care. I will continue to follow up w/ Kandice from [facility]. Discharge date is unknown at this time. Updated patient information has been faxed.
--- NOTE | 2024-11-22 11:16 | P.HP_ITS ---
History of Present Illness *Admission Date: 11/21/24 *History of present illness: Ms. Albarado is a 89-year-old female that resides at [facility]. She was brought into the emergency department today via EMS after it was found that her lab work that was obtained yesterday by the [facility] showed her hemoglobin of 6.9. Per [facility] staff she has been weaker and more lethargic recently and they were concerned something was wrong. Patient is alert to person, place, time and is accompanied by her son. She does denies shortness of breath, chest pain, nausea, vomiting, constipation, diarrhea, abdominal pain, urinary symptoms, fever, hemoptysis, or melena. Hemoglobin today is 7.5. Hemoccult stool was positive. Patient is not on antiplatelet or anticoag therapy. She does have a primary medical history of CKD, GERD, dementia, chronic pain, depression, hypertension, congestive heart failure. [facility] Disclaimer: The information contained in this section may have been updated after the patient was seen, as this information can be updated by other users. Medical History Dementia Alzheimer disease Protein calorie malnutrition Edema Allergic rhinitis Urinary tract infection Arthralgia of bilateral temporomandibular joint Insomnia COVID-19 Opioid dependence Chronic pain Malaise Anxiety GERD (gastroesophageal reflux disease) Hypertension Major depressive disorder Delusional disorder Rectal prolapse Surgical History No significant past surgical history Family History Other No significant family history Social History (Updated 11/22/24 @ 10:18 by Jazmin Zuniga CRNA) Smoking Status: Unknown if ever smoked alcohol intake: never substance use type: unknown current occupational status: retired Travel in the last 8 weeks?: None Have you lived/traveled outside US in past 30 days?: No Contact w/someone who lives/traveled outside US past 30 days?: No Exposure to someone with infectious disease in past 14 days?: No Do you have a fever (greater than 100.4 F or 38 C)?: No Have you tested positive for COVID-19?: No Exposed to someone with COVID-19 in past 14 days?: No Do you have a sore throat?: No Do you have a cough?: No Do you have any weakness?: No Are you experiencing any nausea/vomitting?: No Do you have any diarrhea?: No Are you experiencing any unusual bleeding?: No Do you have any muscle aches/pain?: No Do you have any abdominal pain?: No Are you experiencing loss of taste or smell?: No Other Medical History Have you received the Flu Vaccine for this season: No Have you received the Pneumonia Vaccine: No Review of Systems Review of Systems Review of systems (narrative): Negative Constitutional Constitutional: Reports weakness *Cardiovascular Comments: Negative *Gastrointestinal Comments: Negative *Genitourinary Comments: Negative *Musculoskeletal Comments: Negative *Neurologic Neurologic: Reports weakness Comments: Negative Meds Home Medications and Allergies Home Medications ?Medication ?Instructions ?Recorded ?Confirmed ?Type furosemide 20 mg tablet 20 mg PO DAILY Fluid 3 11/21/24 History hydrocodone 5 mg-acetaminophen 325 1 tab PO QID Pain 0 08/22/22 11/21/24 History mg tablet loratadine 10 mg tablet 10 mg PO DAILY Allergy sympt oms 08/22/22 11/21/24 History mirtazapine 45 mg tablet 45 mg PO HS SLEEP/MOOD 08/2211/21/24 History quetiapine 100 mg tablet 100 mg PO TID 08/22/2211/21 History sennosides 8.6 mg tablet (senna) 17.2 mg PO HS constip ation 08/22/22 11/22/24 History amlodipine 5 mg tablet 5 mg PO DAILY #30 tabs 08/2411/21/24 Rx polyethylene glycol 3350 17 gram 17 g PO DAILY #30 ea 08/24/22 11/21/24 Rx oral powder packet (Miralax) acetaminophen 500 mg tablet 500 mg PO Q6H PRN Breakthr ough 11/21/24 11/21/24 History Pain, Mild New Prescriptions to Start Prescriptions: Allergies Allergy/AdvReac Type Severity Reaction Status Date / Time amoxicillin (From Augmentin) Allergy Verified 05/20/18 05:59 clavulanic acid (From Allergy Verified 05/20/18 05:59 Augmentin) Exam Data for Last 24 hours Vital signs and Labs for Last 24 Hours: Temp Pulse Resp BP Pulse Ox O2 Del Method 98.6 F 75 17 141/60 H 97 Room Air 11/22/24 10:36 11/22/24 10:36 11/22/24 10:36 11/22/24 10:36 11/22/24 10:36 11/22/24 09:08 Laboratory Results - last 24 hr 11/21/24 15:32: WBC 7.1, RBC 2.48 L, Hgb 7.5 L, Hct 24.0 L, MCV 96.8, MCH 30.2, MCHC 31.3 L, RDW 16.7, Plt Count 524 H, MPV 9.6, Neut % (Auto) 61.8, Lymph % (Auto) 21.4, [place] % (Auto) 14.1 H, Eos % (Auto) 2.1, Baso % (Auto) 0.3, Neut # (Auto) 4.4, Lymph # (Auto) 1.5, [place] # (Auto) 1.0, Eos # (Auto) 0.2, Baso # (Auto) 0.0, PT 10.8, INR 0.97, APTT 24.8, Sodium 129 L, Potassium 3.7, Chloride 93 L, Carbon Dioxide 31 H, Anion Gap 8.7, BUN 16, Creatinine 1.00, Estimated Creat Clear 37, Estimated GFR 52 L, Est GFR ( Amer) 63, Glucose 117 H, Calcium 8.6, Magnesium 2.1, Iron 53, TIBC 211 L, Iron Saturation 25.56433, Ferritin 45.0, Total Bilirubin 0.2, AST 22, ALT 10 L, Alkaline Phosphatase 139 H , Total Protein 6.6, Albumin 3.3 L, Globulin 3.3 H, Albumin/Globulin Ratio 1.0 L , Lipase 78, Vitamin B12 783, Blood Type B Negative, Antibody Screen Negative, Crossmatch (AHG) See Detail 11/21/24 16:00: Urine Color Yellow, Urine Appearance Clear, Urine pH 6.0, Ur Specific [place] 1.015, Urine Protein Negative, Urine Glucose (UA) Negative, Urine Ketones Negative, Urine Blood Negative, Urine Nitrate Negative, Urine Bilirubin Negative, Urine Urobilinogen 0.2, Ur Leukocyte Esterase 1+ A, Urine RBC None, Urine WBC 3-5, Ur Squamous Epith Cells None, Calcium Oxalate Crystal 1+, Urine Bacteria 4+ 11/21/24 16:10: Stool Occult Blood Positive A 11/22/24 05:20: Blood Type Confirm B Negative 11/22/24 05:30: WBC 6.7, RBC 2.25 L, Hgb 6.6 L*, Hct 21.7 L, MCV 96.4, MCH 29.3, MCHC 30.4 L, RDW 16.6, Plt Count 426 H, MPV 9.9, Neut % (Auto) 50.2, Lymph % (Auto) 27.7, [place] % (Auto) 17.8 H, Eos % (Auto) 3.7, Baso % (Auto) 0.3, Neut # (Auto) 3.4, Lymph # (Auto) 1.9, [place] # (Auto) 1.2 H, Eos # (Auto) 0.3, Baso # (Auto) 0.0, Sodium 128 L, Potassium 3.3 L, Chloride 98, Carbon Dioxide 29, Anion Gap 4.3 L, BUN 14, Creatinine 0.90, Estimated Creat Clear 39, Estimated GFR 59, Est GFR ( Amer) 71, Glucose 93 D, Calcium 7.7 L, Phosphorus 2.9, Magnesium 1.8 D, Total Bilirubin 0.1 L, AST 18, ALT 8 L, Alkaline Phosphatase 108, Total Protein 5.7 L, Albumin 2.7 L D, Globulin 3.0, Albumin/Globulin Ratio 0.9 L, Triglycerides 79, Cholesterol 129 L, LDL Cholesterol Direct 42.99 L, VLDL Cholesterol 16, HDL Cholesterol 54, Cholesterol/HDL Ratio 2.4 I & O for Last 24 hours: Intake & Output 11/19/24 11/20/24 11/21/24 11/22/24 23:59 23:59 23:59 23:59 Intake Total 1460 / 1460 Output Total 275 / 275 Balance 1185 / 1185 Weight 132 lb 140 lb 4.8 oz *Routine HEENT Exam Head: Present normocephalic Eye: Present EOMI and PERRL ENT: Present mucous membranes moist *Routine Neck Exam Neck: Present supple *Routine Respiratory Exam Respiratory: Present CTA bilaterally *Routine Cardiovascular Exam Cardiovascular: Present RRR *Routine Abdominal Exam Abdominal: Present soft and normoactive bowel sounds; Absent tenderness *Routine Rectal Exam Rectal:: deferred *Routine Genitalia Exam Genitalia:: deferred *Routine Extremities Exam Extremities: Absent cyanosis, clubbing or edema *Routine Skin Exam Skin: Present warm; Absent rash *Routine Neurological Exam Neurological: Present alert and oriented X3 Assessment and Plan *Assessment and plan (1) Fecal occult blood test positive: Status: Acute Category: Medical Code(s): R19.5 - Other fecal abnormalities (2) Black stools: Status: Acute Category: Medical Code(s): K92.1 - Melena (3) Anemia due to blood loss: Status: Acute Category: Medical Code(s): D50.0 - Iron deficiency anemia secondary to blood loss (chronic) Plan A/P: 1. Profound anemia with GI blood loss is the preprocedural diagnosis. The patient will be anesthetized/sedated using MAC sedation. The patient has been seen and examined. Cardiac and lung assessment prior to the examination is stable. Proceed with planned diagnostic EGD.
--- NOTE | 2024-11-22 11:17 | P.PCN_ITS ---
[facility] Procedure Note Date: 11/22/24 Time: 11:36 Procedure Note:: Upper Endoscopy Procedure Report: Esophagogastroduodenoscopy with cold biopsies Endoscopost: Gigi Romero II, MD Referring Physician: Niko Winter MD Date of Procedure: November 22, 2024 Equipment: Olympus GIF-1100 standard upper endoscope Sedation: MAC sedation Indications: Mrs. Albarado is an 89-year-old female who is brought to the emergency department from the assisted facility because of a hemoglobin of 6.9. The patient does report some dark stools and reduced appetite over the last week. She reports no hematochezia or bright red blood per rectum. In the ED she had Hemoccult positive stools. She has been placed on IV Protonix. The patient did have a former GI bleed at [facility] 10 to 15 years ago. This was thought to be related to the use of aspirin. The patient's iron studies showed serum iron 53, iron saturation 25% and ferritin 45.0. Her vitamin B12 level was 783. Her hemoglobin hematocrit today were 6.6 and 21.7. She does have normocytic indices. Procedure: Prior to the procedure, a history and physical exam was performed, and patient's medications and allergies were reviewed. The risks, benefits and alternatives of the sedation and procedure were discussed with the patient. All questions were answered and informed consent was obtained. The patient was brought to the procedure room. Patient identification and proposed procedure were verified by the physician and the nurse. The patient was placed in a left lateral decubitus position and the scope was passed under direct vision. Throughout the procedure, the patient's blood pressure, pulse, and oxygen saturations were monitored continuously. The upper GI endoscopy was accomplished without difficulty. The patient tolerated the procedure well. Findings: The scope was passed directly into the upper esophagus and advanced to the third portion of the duodenum. Upon withdrawal, there was evidence of prior antrectomy with some surgical changes at the gastroduodenal anastomosis. The anastomosis was widely patent. Cold biopsies were taken from the first portion of duodenum but there were no ulcerations or erosions. There was mild gastritis but no ulcers within the stomach. Upon retroflexion there was a small hiatal hernia. Cold biopsies were taken in the stomach. The scope was withdrawn into the esophagus. There was a larger distal esophageal ulceration with margins. This did encompass one half of the circumference of the distal esophagus and extended only 1.5 cm proximally. This appeared to be benign and biopsies were taken at the margin of the ulcer. This appeared to be likely pill induced ulceration/pill induced esophagitis more so than reflux esophagitis. The mid and proximal esophagus were normal. Impression: 1. Larger distal esophageal ulcer (one half circumference of distal esophagus)?rule out pill induced esophagitis 2. Prior antrectomy with normal gastroduodenal anastomosis 3. Small 1 to 2 cm hiatal hernia 4. Mild chronic gastritis Plan: The most common causes of pill induced esophagitis are antibiotics (tetracyclines, NSAIDs, biphosphonate's, iron, potassium chloride). I will inquire about this. I would recommend continuing oral PPI therapy. I will fol low-up the biopsies. This may have been the etiology of her Hemoccult positive stools. The patient's iron levels were normal and she is normocytic. If the patient remains anemic, she will likely need diagnostic colonoscopy.
[2024-11-22 12:55] LABS: Hematocrit 28.3 % (37.0-47.0)
[2024-11-22 13:13] LABS: Hemoglobin 9.0 g/dL (12.2-16.2)
--- NOTE | 2024-11-22 17:41 | PC.NURSE ---
pt resting supine in bed. pt had EGD today that showed an ulcer with no active bleeds. 1 unit of blood given in the OR. pt HGB now 9.0. 1 unit of blood on standby. no complaints of pain. pt tolerating oral intake well. no needs at this time. son updated on POC. call light within reach.
[2024-11-22] MEDS: ACETAMINOPHEN 325MG TAB 650 MG PO (18:40)
[2024-11-22] MEDS: MIRTAZAPINE 15 MG TABLET 45 MG PO (20:21)
[2024-11-23] VITALS: BP 140/86; PULSE 86; RESP 20; TEMP 36.8; O2SAT 98
[2024-11-23] MEDS: HYDROCODONE/APAP 5/325 MG TABLET 1 TAB PO (01:58)
[2024-11-23 04:00] VITALS: BP 154/89; PULSE 92; RESP 18; TEMP 36.9; O2SAT 99; BMI 22.4
--- NOTE | 2024-11-23 04:04 | INFXCTL.NOTE ---
Pt A&O x4 with intermittent confusion. Pt is on RA. Pt VSS. Pt's latest HgB was 9.0. Pt has no obvious signs of active bleeding. Pt did have a small bowel movement with black stools. Pt has been resting well throughout the night. Pt medicated for pain once per JUN. Pt not voicing any concerns at this time. Pt resting w/ call light in reach. POC ongoing.
[2024-11-23 06:05] LABS: Hematocrit 35.1 % (37.0-47.0); Immature Granulocytes % 0.3 %; Mean Corpuscular HGB Conc 31.1 g/dL (31.8-35.4); Mean Corpuscular Hemoglobin 30.5 pg (27.0-31.2); Mean Corpuscular Volume 98.3 fl (81-99); Nucleated Red Blood Cells % 0 %; Platelet Count 76 K/mm3 (142-424); Red Blood Count 3.57 M/mm3 (4.20-5.40); Red Cell Distribution Width-SD 62.1 fL; White Blood Count 11.8 K/mm3 (4.8-10.8)
[2024-11-23 06:08] LABS: Hemoglobin 10.9 g/dL (12.2-16.2)
[2024-11-23 06:09] LABS: Albumin Level 3.1 g/dl (3.5-5.0); Chloride 100 mmol/L (98-107); Potassium 4.1 mmoL/L (3.5-5.1); Sodium 130 mmol/L (136-145)
[2024-11-23 06:12] LABS: Alanine Aminotransferase 10 U/L (12-78); Albumin/Globulin Ratio 0.9 (1.1-1.8); Alkaline Phosphatase 216 U/L (38-126); Anion Gap 10.1 mEq/L (5-15); Aspartate Amino Transferase 109 U/L (14-36); Bilirubin,Total 1.5 mg/dl (0.2-1.3); Blood Urea Nitrogen 12 mg/dl (7-17); Calcium 7.8 mg/dl (8.4-10.2); Carbon Dioxide 24 mmol/L (22.0-30.0); Creatinine Clearance Estimated 39 mL/min (50-200); Creatinine,Serum 0.90 mg/dl (0.52-1.04); Estimated Glomerular Filt Rate 59 ml/min (>60); GFR (African American) 71 ML/MIN (>60); Globulin 3.3 g/dL (1.3-3.2); Glucose 89 mg/dl (74-100); Total Protein,Serum 6.4 g/dl (6.3-8.2)
[2024-11-23 08:00] VITALS: BP 165/86; PULSE 89; RESP 18; TEMP 36.7; O2SAT 97
--- NOTE | 2024-11-23 08:41 | P.DS_ITS ---
<Statement entered by Zack Diaz MD - 11/23/24 12:19> Rounded on patient after nurse practitioner. Personally examined and interviewed patient. Agree with exam findings and care plan as documented. General Admission date:: 11/21/24 Discharge date: 11/23/24 HPI HPI HPI: Ms. Albarado is a 89-year-old female that resides at [facility]. She was brought into the emergency department today via EMS after it was found that her [facility] work [facility] showed her hemoglobin of 6.9. [facility] staff she has been weaker and more let hargic recently and they were concerned something was wrong. Patient is alert to person, place, time and is accompanied by her son. She does denies shortness of breath, chest pain, nausea, vomiting, constipation, diarrhea, abdominal pain, urinary symptoms, fever, hemoptysis, or melena. Hemoglobin today is 7.5. Hemoccult stool was positive. Patient is not on antiplatelet or anticoag therapy. She does have a primary medical history of CKD, GERD, dementia, chronic pain, depression, hypertension, congestive heart failure. Hospital Course Hospital Course Hospital Course: Ms. Albarado is a 89-year-old female that resides at [facility]. She was brought into the emergency department via EMS after it was found that her lab work that was obtained [facility] the [facility] showed her hemoglobin of 6.9. Per [facility] staff she has been weaker and more lethargic recently and they were concerned something was wrong. Patient is alert to person, place, time and was accompanied by her son. She denied shortness of breath, chest pain, nausea, vomiting, constipation, diarrhea, abdominal pain, urinary symptoms, fever, hemoptysis, or melena. Hemoglobin on admission was 7.5. Hemoccult stool was positive. Patient is not on antiplatelet or anticoag therapy. She does have a primary medical history of CKD, GERD, dementia, chronic pain, depression, hypertension, congestive heart failure. Hospital medicine was consulted by CANDIDO Bryan who requested admission for patient for further monitoring of potential GI bleed. I agreed to accept the patient, plan of care as follows: #Anemia #Fecal occult blood test positive ? Patient had EGD 11/22/[address] Romero, per discussion, he found a large distal esophageal ulcer, mild chronic gastritis. Per Dr. Romero unlikely this is the source of her anemia, assessment of medications does not reveal likely cause of ulceration. Iron studies unremarkable. ? Patient's hemoglobin on admission was 6.6, 1 unit PRBCs transfused. H&H day of discharge, hemoglobin 10.8. Patient should have follow-up CBC in approximately 1 week. ? Patient discharged with Protonix 40 mg daily for gastritis, epigastric burning. ? Vital signs remained stable, normotensive, afebrile. Chest x-ray unremarkable on admission. #Weakness ? Patient essentially bedridden, she does not get up to the chair or ambulate. ? Patient will be every 2 hours turns. Patient has small pressure area on coccyx, Mepilex dressing in place. Continued pressure relief at discharge. #Dementia #Anxiety #MDD ? Continue quetiapine 100 mg 3 times daily, mirtazapine 45 mg at bedtime. #Chronic pain ? Continue [place] 5/325 mg 4 times daily at this time. ? Continue MiraLAX 17 g daily, senna 8.6 mg daily for opioid-induced constip ation. #Hypertension ? Continue amlodipine 5 mg daily and furosemide 20 mg daily. Total time spent on discharge 34 minutes in counseling, documentation, chart r eview, and direct care with patient. Exam Data for Last 24 hours Vital signs and Labs for Last 24 Hours: Temp Pulse Resp BP Pulse Ox O2 Del Method 98.5 F 92 H 18 154/89 H 99 Room Air 11/23/24 04:00 11/23/24 04:00 11/23/24 04:00 11/23/24 04:00 11/23/24 04:00 11/23/24 06:44 Laboratory Results - last 24 hr 11/21/24 15:32: Blood Type B Negative, Antibody Screen Negative, Crossmatch (AHG) See Detail 11/22/24 12:48: Hgb 9.0 L D, Hct 28.3 L 11/23/24 05:42: WBC 11.8 H D, RBC 3.57 L D, Hgb 10.9 L D, Hct 35.1 L, MCV 98.3, MCH 30.5, MCHC 31.1 L, RDW 17.5, Plt Count 76 L D, MPV 11.4 H, Neut % (Auto) 78.6, Lymph % (Auto) 8.0 L, [place] % (Auto) 12.4 H, Eos % (Auto) 0.4, Baso % (Auto) 0.3, Neut # (Auto) 9.3 H, Lymph # (Auto) 1.0, [place] # (Auto) 1.5 H, Eos # (Auto) 0.1, Baso # (Auto) 0.0, Sodium 130 L, Potassium 4.1 D, Chloride 100, Carbon Dioxide 24, Anion Gap 10.1, BUN 12, Creatinine 0.90, Estimated Creat Clear 39, Estimated GFR 59, Est GFR ( Amer) 71, Glucose 89, Calcium 7.8 L , Total Bilirubin 1.5 H, AST 109 H D, ALT 10 L, Alkaline Phosphatase 216 H, Total Protein 6.4, Albumin 3.1 L D, Globulin 3.3 H, Albumin/Globulin Ratio 0.9 L I & O for Last 24 hours: Intake & Output 11/20/24 11/21/24 11/22/24 11/23/24 23:59 23:59 23:59 23:59 Intake Total 1460 / 1580 120 / 120 Output Total 775 / 775 300 / 300 Balance 685 / 805 -180 / -180 Weight 59.874 kg 63.639 kg 63.185 kg Microbiology Reports for the Last 24 Hours: Microbiology 11/21/24 16:00 Urine,Catheterized Urine Culture - Final Multiple organisms, suggests contamination. Results Data Completed and Pending Labs on day of discharge: Labs from last 24 hours 11/23/24 11/22/24 11/21/24 05:42 12:48 15:32 WBC 11.8 H D RBC 3.57 L D Hgb 10.9 L D 9.0 L D Hct 35.1 L 28.3 L MCV 98.3 MCH 30.5 MCHC 31.1 L RDW 17.5 Plt Count 76 L D MPV 11.4 H Neut % (Auto) 78.6 Lymph % (Auto) 8.0 L [place] % (Auto) 12.4 H Eos % (Auto) 0.4 Baso % (Auto) 0.3 Neut # (Auto) 9.3 H Lymph # (Auto) 1.0 [place] # (Auto) 1.5 H Eos # (Auto) 0.1 Baso # (Auto) 0.0 Sodium 130 L Potassium 4.1 D Chloride 100 Carbon Dioxide 24 Anion Gap 10.1 BUN 12 Creatinine 0.90 Estimated Creat Clear 39 Estimated GFR 59 Est GFR ( Amer) 71 Glucose 89 Calcium 7.8 L Total Bilirubin 1.5 H AST 109 H D ALT 10 L Alkaline Phosphatase 216 H Total Protein 6.4 Albumin 3.1 L D Globulin 3.3 H Albumin/Globulin Ratio 0.9 L Blood Type B Negative Antibody Screen Negative Crossmatch (AHG) See Detail DS: Diagnosis Discharge Diagnosis (1) Anemia: Status: Acute Code(s): D64.9 - Anemia, unspecified Qualifiers: Anemia type: unspecified type Qualified Code(s): D64.9 - Anemia, unspecified (2) Fecal occult blood test positive: Status: Acute Code(s): R19.5 - Other fecal abnormalities (3) Dementia: Status: Acute Code(s): F03.90 - Unspecified dementia, unspecified severity, without behavioral disturbance, psychotic disturbance, mood disturbance, and anxiety (4) Chronic pain: Status: Acute Code(s): G89.29 - Other chronic pain (5) Anxiety: Status: Acute Code(s): F41.9 - Anxiety disorder, unspecified (6) Major depressive disorder: Status: Acute Code(s): F32.9 - Major depressive disorder, single episode, unspecified (7) Hypertension: Status: Acute Code(s): I10 - Essential (primary) hypertension (8) Weakness: Status: Acute Code(s): R53.1 - Weakness Meds Home Medications and Allergies Home Medications ?Medication ?Instructions ?Recorded ?Confirmed ?Type furosemide 20 mg tablet 20 mg PO DAILY Fluid 3 11/21/24 History hydrocodone 5 mg-acetaminophen 325 1 tab PO QID Pain 0 08/22/22 11/21/24 History mg tablet loratadine 10 mg tablet 10 mg PO DAILY Allergy sympt oms 08/22/22 11/21/24 History mirtazapine 45 mg tablet 45 mg PO HS SLEEP/MOOD 08/2211/21/24 History quetiapine 100 mg tablet 100 mg PO TID 08/22/2211/21 History sennosides 8.6 mg tablet (senna) 17.2 mg PO HS constip ation 08/22/22 11/22/24 History amlodipine 5 mg tablet 5 mg PO DAILY #30 tabs 08/2411/21/24 Rx polyethylene glycol 3350 17 gram 17 g PO DAILY #30 ea 08/24/22 11/21/24 Rx oral powder packet (Miralax) acetaminophen 500 mg tablet 500 mg PO Q6H PRN Breakthr ough 11/21/24 11/21/24 History Pain, Mild pantoprazole 40 mg tablet,delayed 40 mg PO DAILY #30 t abs 11/23/24 Rx release (Protonix) New Prescriptions to Start Prescriptions: pantoprazole [Protonix] Ida Gao Allergies Allergy/AdvReac Type Severity Reaction Status Date / Time amoxicillin (From Augmentin) Allergy Verified 05/20/18 05:59 clavulanic acid (From Allergy Verified 05/20/18 05:59 Augmentin) Discharge Plan Disposition Patient Disposition: [facility] Condition: Good Discharge Order Discharge Orders: Discharge Order (Routine); Ordered 11/23/24 Ordered By: Ida Gao Follow up Plan Prescriptions/Medication Reconciliation: New pantoprazole [Protonix] 40 mg tablet,delayed release (DR/EC) 40 mg PO DAILY Qty: 30 1RF Continued sennosides [senna] 8.6 mg Tablet 17.2 mg PO HS hydrocodone-acetaminophen 5-325 mg tablet 1 tab PO QID quetiapine 100 mg tablet 100 mg PO TID mirtazapine 45 mg tablet 45 mg PO HS furosemide 20 mg tablet 20 mg PO DAILY loratadine 10 mg Tablet 10 mg PO DAILY polyethylene glycol 3350 [Miralax] 17 gram Powder In Packet 17 g PO DAILY Qty: 30 0RF amlodipine 5 mg Tablet 5 mg PO DAILY Qty: 30 0RF acetaminophen 500 mg tablet 500 mg PO Q6H PRN (Reason: Breakthrough Pain, Mild) Problem Reconciliation Problems Reviewed?: Yes Patient Discharge Instructions ACTIVITY: Continue current activity DIET: continue same diet Additional Instructions: Repeat CBC in 1 week. Patient Instructions: Anemia, Upper GI Endoscopy, DI for Anemia of Chronic Disease Print Language: Thai Providers Primary Care Provider: Provider,Referral Admit Provider: Niko Winter Attending Provider: Niko Winter
[2024-11-23 08:42] LABS: Hematocrit 33.4 % (37.0-47.0); Hemoglobin 10.8 g/dL (12.2-16.2); Immature Granulocytes % 0.6 %; Mean Corpuscular HGB Conc 32.3 g/dL (31.8-35.4); Mean Corpuscular Hemoglobin 30.2 pg (27.0-31.2); Mean Corpuscular Volume 93.3 fl (81-99); Nucleated Red Blood Cells % 0 %; Platelet Count 437 K/mm3 (142-424); Red Blood Count 3.58 M/mm3 (4.20-5.40); Red Cell Distribution Width-SD 58.0 fL; White Blood Count 13.9 K/mm3 (4.8-10.8)
[2024-11-23 09:29] LABS: Total Cells Counted 100
[2024-11-23 09:30] LABS: RBC Morphology Normal
--- NOTE | 2024-11-23 09:56 | HMH.PTEV ---
Physical Therapy Evaluation Rehab PT IP Evaluation Start: 11/23/24 08:25 Freq: ONCE Status: Active Protocol: Document 11/23/24 09:00 JENNIFER (Rec: 11/23/24 09:56 JENNIFER [id number]) Subjective/History History History 89-year-old female that resides at [facility]. She was brought into the emergency department today via EMS after it was found that her lab work that was obtained yesterday by the senior care showed her hemoglobin of 6.9. Per senior care staff she has been weaker and more lethargic recently and they were concerned something was wrong. Patient is alert to person, place, time and is accompanied by her son. She does denies shortness of breath, chest pain, nausea, vomiting, constipation, diarrhea, abdominal pain, urinary symptoms, fever, hemoptysis, or melena. Hemoglobin today is 7.5. Hemoccult stool was positive. Patient is not on antiplatelet or anticoag therapy. She does have a primary medical history of CKD, GERD, dementia, chronic pain, depression, hypertension, congestive heart failure. Pt is Dependent with all mobility at baseline and is a SNF resident. Subjective Subjective Pt c/o discomfort with any mobility this am, but did agree to mobility assessment. [facility] How much help from another person do you currently need... Turning from your A lot back to your side while in a flat bed without using bedrails? Moving from lying on Total back to sitting on the side of a flat bed without using bedrails? Moving to and from a Total bed to a chair ( including a wheelchair)? Standing up from a Total chair using your arms? (e.g., wheelchair, bedside chair) Walking in hospital Total room? Climbing 3-5 steps Total with a railing? Mobility Score 7 Mobility Level [facility] Mobility 2 Bed activities/dependent transfer Mobility Calculator Rehab PT IP Eval Objective Appearance Patient Behavior Appropriate Patient Orientation Person Difficulty following mild instructions Speech Pattern Clear Ambulation Patient Able to No Ambulate Balance Ability to Arise Unable Sitting Balance Leans or slides in chair Transfers Bed Transfer Ability Total/Dependent (100%) Rehab PT IP prob,goals,plan Problems Date of Evaluation: 11/23/24 Discharge Plan PT Discharge Plan Pt is currently dependent for all mobility in bed and transfers, which is her baseline. No current need for skilled acute therapy services. Eval Complexity Eval Charge Codes 00035 - High Complexity PHYSICIAN CERTIFICATION: I certify the specified therapy services for Nishi Albarado are required, authorized, and reviewed every 30 days.
[2024-11-23] MEDS: QUETIAPINE 100MG TABLET 100 MG PO (09:59)
[2024-11-23] MEDS: SODIUM CHLORIDE 0.9% 10ML VIAL 10 ML IV (09:59)
[2024-11-23] MEDS: PANTOPRAZOLE 40MG VIAL 40 MG IV (09:59)
--- NOTE | 2024-11-23 10:06 | HMH.PTWOUND ---
Rehab Inpt Wound Evaluation Rehab IP Wound Evaluation Start: 11/22/24 08:33 Freq: ONCE Status: Active Protocol: Document 11/23/24 10:02 JENNIFER (Rec: 11/23/24 10:06 JENNIFER [id number]) Rehab PT Wound Assessment Subjective Subjective 89-year-old female that resides at [facility]. She was brought into the emergency department today via EMS after it was found that her [facility] that [facility] showed her hemoglobin of 6.9. Per [facility] staff she has been weaker and more lethargic recently and they were concerned something was wrong. Patient is alert to person, place, time and is accompanied by her son. She does denies shortness of breath, chest pain, nausea, vomiting, constipation, diarrhea, abdominal pain, urinary symptoms, fever, hemoptysis, or melena. Hemoglobin today is 7.5. Hemoccult stool was positive. Patient is not on antiplatelet or anticoag therapy. She does have a primary medical history of CKD, GERD, dementia, chronic pain, depression, hypertension, congestive heart failure. Pt is Dependent with all mobility at baseline and is a SNF resident. Pt presents with wound to sacral region upon admission. Wound Sacrum Wound Type Pressure Ulcer Is This a Chronic No Wound Wound Staging Stage II Query Text:Stage I - Unbroken, red skin, no blanching. Stage II - Skin broken, superficial skin loss involving epidermis alone or also dermis. Partial loss of skin layers. Stage III - Pressure area involves epidermis, dermis and subcutaneous tissue, full thickness skin loss. Stage IV - Pressure area involves epidermis, subcutaneous tissue, bone and other supportive tissue. Full thickness skin loss with extensive destruction of underlying tissue and structures. Wound Length (cm) 1.0 Wound Width (cm) 0.5 Wound Depth (cm) 0.1 Wound Bed Appearance [place] Wound Margins Well Defined Description Primary Dressing Composite Dressing Change Tolerated Well Patient Tolerance Plan/Recommendation Comment Wound is possible pressure injury or shear injury that presents as dry without drainage noted. Wound covered with composite foam dressing as a precaution to prevent further breakdown. [facility] staff treating appropriately and providing necessary pressure relief. Thank you for involving the wound care team in the care of this patient. Eval Complexity Eval Charge Codes 64161 - High Complexity PHYSICIAN CERTIFICATION: I certify the specified therapy services for Nerita Albarado are required, authorized, and reviewed every 30 days.
--- NOTE | 2024-11-23 11:53 | PC.NURSE ---
Report called to Renetta at [facility] facility.
[2024-11-23 12:00] VITALS: BP 166/89; PULSE 97; RESP 18; TEMP 37.3
--- NOTE | 2024-11-23 12:07 | PC.NURSE ---
EMS notified for transport. Family notified.
== END 2024-11-23 12:45 | DRG 812 ==
LOC: ER 16:43 → 2ND 11-22 05:57
PROVIDERS: Internal Medicine Adolescent Medicine; Internal Medicine Gastroenterology; Physician Assistant; Admitting Provider Student in an Organized Health Care Education/Training Program; Emergency Provider Emergency Medicine; Visit Provider Student in an Organized Health Care Education/Training Program
PROC: 0DJ08ZZ Inspection of Upper Intestinal Tract, Via Natural or Artificial Opening Endoscopic (ICD-10-PCS; principal; 2024-11-22 11:00)
DX: D64.9 Anemia, unspecified (principal); I13.0 Hypertensive heart and chronic kidney disease with heart failure and stage 1 through stage 4 chronic kidney disease, or unspecified chronic kidney disease; K22.10 Ulcer of esophagus without bleeding; E87.1 Hypo-osmolality and hyponatremia; F03.90 Unspecified dementia, unspecified severity, without behavioral disturbance, psychotic disturbance, mood disturbance, and anxiety; I50.9 Heart failure, unspecified; G89.29 Other chronic pain; F41.9 Anxiety disorder, unspecified; F32.9 Major depressive disorder, single episode, unspecified; K29.50 Unspecified chronic gastritis without bleeding; K21.9 Gastro-esophageal reflux disease without esophagitis; K44.9 Diaphragmatic hernia without obstruction or gangrene; N18.9 Chronic kidney disease, unspecified; R53.1 Weakness; R19.5 Other fecal abnormalities; Z87.891 Personal history of nicotine dependence; Z79.899 Other long term (current) drug therapy; Z88.0 Allergy status to penicillin
CPT/HCPCS: 36415; 36430; 71045; 80053; 80061; 81001; 82272; 82607; 82728; 83540; 83550; 83690; 83735; 84100; 85007; 85014; 85018; 85025; 85610; 85730; 86850; 87086; 93005; 97163; 97165; G0328; J2003; J2270; J2470; J2704; J7030; J7120; P9016